=== PATIENT | female | born 1930 | race Caucasian/White ===

== ENCOUNTER 2016-11-09 13:01 | Outpatient (CLI) ==
[2014-02-04 15:04] VITALS: BMI 29.2
--- NOTE | 2016-11-09 14:10 | CT ---
EXAM: Noncontrasted CT examination of the abdomen and pelvis. Comparison: 06/15/2010. Reason for study: Abdominal pain. FINDINGS: Minimal basilar atelectasis/scarring. The heart is not enlarged. There is atherosclerot ic calcification of the aorta and distal arterial vasculature to include the coronary vessels. The liver, spleen, adrenal glands, and pancreas are unremarkable. There is mild bilateral renal cortical atrophy without nephrolithiasis, hydronephrosis, or perinephr ic inflammatory change. Within the right kidney, there are several large low density (Hounsfield un its equal 12), well-circumscribed cystic lesions without internal heterogenicity measuring up to 3 c m that are incompletely evaluated without intravenous contrast. There is a small fat containing periumbilical hernia. Extensive diverticular disease is seen throug hout the rectosigmoid colon without surrounding pericolonic inflammatory change. Degenerative disease is seen throughout the lumbosacral spine and pelvis with anterior and posterior osteophyte formation and vacuum disc phenomenon. Metallic densities are seen in the subcutaneous soft tissue of the abdomen likely after operative in tervention. Examination is somewhat limited by lack of intravenous and oral contrast. IMPRESSION: 1. No acute intra-abdominal or pelvic findings. 2. Diverticulosis without diverticulitis. 3. Postoperative, degenerative, and senescent change.
== END 2016-11-09 13:02 | disposition home or self-care (01) ==
LOC: RAD 13:01
PROVIDERS: ATTEND Family Medicine
DX: R10.9 Unspecified abdominal pain (principal)
CPT/HCPCS: 74176

== ENCOUNTER 2017-07-26 15:28 | Outpatient (CLI) ==
[2014-02-04 15:04] VITALS: BMI 29.2
== END 2017-07-26 15:29 | disposition short-term general hospital (02) ==
LOC: AMBL 15:28
DX: M54.9 Dorsalgia, unspecified (principal); R19.7 Diarrhea, unspecified

== ENCOUNTER 2017-10-31 05:31 | Inpatient (IN) | payer OTHER ==
[2017-10-31] MEDS ORDERED: SOLU-MEDROL 125 MG IVP STA (06:05)
[2017-10-31] MEDS ORDERED: DUONEB NEB STA (06:05)
--- NOTE | 2017-10-31 06:28 | ED.PDOC ---
General Stated Complaint: Patient is sent from the [place], for the coughing, congestion, short of breath. leg edema, sat was low. Time Seen by Physician: 06:26 Mode of Arrival: Wheelchair Information Source: Family Reviewed sepsis parameters & appropriate labs ordered?: Yes System Inflammatory Response Syndrome: Resp >20/Minute <BRENDA CHAKRABORTY - Last Filed: 10/31/17 06:26> Nursing and Triage Documentation Reviewed and Agree: No Reviewed sepsis parameters & appropriate labs ordered?: No System Inflammatory Response Syndrome: Not Applicable System Inflammatory Response Syndrome: Not Applicable <ZEV TEAGUE - Last Filed: 10/31/17 08:05> ED Provider: Dr. ZEV TEAGUE Chief Complaint: Chest Pain Primary Care Provider: BRENDA CHAKRABORTY-[facility] Sepsis Protocol: For patient's 13 years and over: Temp is 96.8 and below OR 101 and greater Pulse >90 BPM Resp >20/minute Acutely Altered Mental Status Are patient's symptoms suggestive of a new infection, such as: -Pneumonia -Skin, Soft Tissue -Endocarditis -UTI -Bone, Joint Infection -Implantable Device -Acute Abdominal Infection -Wound Infection -Meningitis -Blood Stream Catheter Infection -Unknown Respiratory Complaint Exam - Shortness of Air Complaint/Exam Symptoms Are: Still present Timing: Constant Initial Severity: Severe Character: Reports: Dyspnea at rest Aggravating: Reports: URI Alleviating: Reports: None Associated Signs and Symptoms: Reports: Cough, Wheezing, Nasal congestion, Edema Related History: Reports: Similar episode History of Healthcare-Acquired Pneumonia: No Cardiac Risk Factors: Reports: Prior [place], CAD, Elevated lipids Pseudomonas Risk Factors: Reports: None Home Oxygen Use: No Recent Stress Test: No Recent Echo/LV Function: No Respiratory Distress: Mild Stridor Present: No Tracheal Deviation: No Subcutaneous Emphysema: No Accessory Muscle Use: Yes Retractions: Nasal Flaring Diminished Breath Sounds: Yes Prolonged Expiratory Phase: Yes Unable to Speak Full Sentences: Yes Fatigue: No Leg Swelling: Yes Ivett's Sign Present: No Differential Diagnoses: CHF, COPD Exacerbation, Unstable Angina, Pneumonia Quality Indicators for AMI: EKG in 10min. <BRENDA CHAKRABORTY - Last Filed: 10/31/17 06:26> Review of Systems - Review Of Systems Constitutional: Reports: Malaise, Weakness Eyes: Reports: No symptoms Ears, Nose, Mouth, Throat: Reports: No symptoms Respiratory: Reports: Cough, Short of air, Wheezing Cardiac: Reports: No symptoms GI: Reports: No symptoms : Reports: No symptoms Musculoskeletal: Reports: No symptoms Skin: Reports: No symptoms Neurological: Reports: No symptoms Endocrine: Reports: No symptoms Hematologic/Lymphatic: Reports: No symptoms All Other Systems: Reviewed and Negative <BRENDA CHAKRABORTY Last Filed: 10/31/17 06:26> Past Medical History - Past Medical History Previously Healthy: Yes Endocrine: Reports: Hypothyroid, Dyslipidemia Cardiovascular: Reports: CAD, Hypertension, CHF, A-Fib Respiratory: Reports: COPD Hematological: Reports: None Gastrointestinal: Reports: GERD Genitourinary: Reports: None Neuro/Psych: Reports: Anxiety Musculoskeletal: Reports: Arthritis, Back Pain Cancer: Reports: None Last Menstrual Period: menopausal - Surgical History General Surgical History: Reports: Appendectomy, Cholecystectomy, Tonsillectomy , Orthopedic (rt ankle) - Family History Family History: Reports: None - Social History Smoking Status: Former smoker Hx Substance Use: No Alcohol Screening: None - Immunizations Tetanus Shot up to Date: No <BRENDA CHAKRABORTY Last Filed: 10/31/17 06:26> Physical Exam - Physical Exam Appearance: Ill-appearing Ill-appearing: Mild Pain Distress: Mild Eyes: ALESSIO, EOMI, Conjunctiva clear ENT: Ears normal, Nose normal, Oropharynx normal Respiratory: Rhonchi Cardiovascular: RRR, Pulses normal, No rub, No murmur GI/: Soft, Nontender, No masses, Bowel sounds normal, No Organomegaly Musculoskeletal: Normal strength, ROM intact, No edema, No calf tenderness Skin: Warm, Dry, Normal color Neurological: Sensation intact, Motor intact, Reflexes intact, Cranial nerves intact, Alert, Oriented Psychiatric: Affect appropriate, Mood appropriate <ZVE TEAGUE Last Filed: 10/31/17 08:05> Critical Care Note - Critical Care Note Total Time (mins): 0 <ZEV TEAGUE Filed: 10/31/17 08:05> Course - Course Hematology/Chemistry: 10/31/17 06:50 10/31/17 06:50 <ZEV TEAGUE Last Filed: 10/31/17 08:05> - Course Orders, Labs, Meds: Lab Review 10/31/17 10/31/17 10/31/17 06:02 06:50 06:50 WBC 9.73 RBC 3.11 L Hgb 8.5 L Hct 27.5 L MCV 88.4 MCH 27.3 MCHC 30.9 L RDW Coeff of Jamal 17.7 H Plt Count 447 H Immature Gran % (Auto) 0.6 Neut % (Auto) 61.3 Lymph % (Auto) 26.9 [place] % (Auto) 10.4 H Eos % (Auto) 0.6 Baso % (Auto) 0.2 Immature Gran # (Auto) 0.1 Neut # 6.0 Lymph # 2.6 [place] # 1.0 Eos # 0.1 Baso # 0.0 Puncture Site Lrad O2 Saturation 96.0 ABG pH 7.508 H* ABG pCO2 36.8 ABG pO2 75.0 L ABG HCO3 29.2 H ABG Total CO2 30 H ABG Base Excess 6 H Josh Test + FiO2 % 21.0 Sodium 140 Potassium 2.5 L* Chloride 100 Carbon Dioxide 29 Anion Gap 13.5 BUN 14 Creatinine 0.72 Estimated GFR (MDRD) 77.00 BUN/Creatinine Ratio 19.44 Glucose 101 Lactic Acid Calcium 8.8 Total Bilirubin 0.6 AST 15 ALT 9 L Alkaline Phosphatase 75 Total Creatine Kinase 49 Troponin I 0.0330 B-Natriuretic Peptide Total Protein 6.7 Albumin 2.3 L Globulin 4.4 Albumin/Globulin Ratio 0.52 Procalcitonin Influenza A (Rapid) Influenza B (Rapid) 10/31/17 10/31/17 10/31/17 06:50 06:50 06:50 WBC RBC Hgb Hct MCV MCH MCHC RDW Coeff of Jamal Plt Count Immature Gran % (Auto) Neut % (Auto) Lymph % (Auto) [place] % (Auto) Eos % (Auto) Baso % (Auto) Immature Gran # (Auto) Neut # Lymph # [place] # Eos # Baso # Puncture Site O2 Saturation ABG pH ABG pCO2 ABG pO2 ABG HCO3 ABG Total CO2 ABG Base Excess Josh Test FiO2 % Sodium Potassium Chloride Carbon Dioxide Anion Gap BUN Creatinine Estimated GFR (MDRD) BUN/Creatinine Ratio Glucose Lactic Acid 10.2 Calcium Total Bilirubin AST ALT Alkaline Phosphatase Total Creatine Kinase Troponin I B-Natriuretic Peptide 328 H Total Protein Albumin Globulin Albumin/Globulin Ratio Procalcitonin < 0.05 Influenza A (Rapid) Influenza B (Rapid) 10/31/17 06:50 WBC RBC Hgb Hct MCV MCH MCHC RDW Coeff of Jamal Plt Count Immature Gran % (Auto) Neut % (Auto) Lymph % (Auto) [place] % (Auto) Eos % (Auto) Baso % (Auto) Immature Gran # (Auto) Neut # Lymph # [place] # Eos # Baso # Puncture Site O2 Saturation ABG pH ABG pCO2 ABG pO2 ABG HCO3 ABG Total CO2 ABG Base Excess Josh Test FiO2 % Sodium Potassium Chloride Carbon Dioxide Anion Gap BUN Creatinine Estimated GFR (MDRD) BUN/Creatinine Ratio Glucose Lactic Acid Calcium Total Bilirubin AST ALT Alkaline Phosphatase Total Creatine Kinase Troponin I B-Natriuretic Peptide Total Protein Albumin Globulin Albumin/Globulin Ratio Procalcitonin Influenza A (Rapid) Positive by naat H Influenza B (Rapid) Negative by naat Orders Category Date Time Status ADMIT PATIENT INPATIENT .TO [facility] (MONITORED BED) ADMISSION 10/31/17 08: 00 Ordered ABG DRAW REQUEST Stat CARDIO 10/31/17 06:02 Completed EKG-(ED ONLY) Stat CARDIO 10/31/17 06:02 Completed EKG-(IP & OP ONLY) DAILY CARDIO 11/01/17 06:00 Ordered EKG-(IP & OP ONLY) DAILY CARDIO 11/02/17 06:00 Ordered EKG-(IP & OP ONLY) DAILY CARDIO 11/03/17 06:00 Ordered NEBULIZER TREATMENT Stat CARDIO 10/31/17 06:05 Completed ACTIVITY .Complete BR CARE 10/31/17 08:00 Ordered INTAKE & OUTPUT Q8HR CARE 10/31/17 08:02 Ordered TELEMETRY MONITORING TELE CARE 10/31/17 08:01 Ordered VITAL SIGNS Q4HR CARE 10/31/17 08:00 Ordered REGULAR DIET DIETARY 10/31/17 Lunch Ordered ED IV/MEDIPORT/POWERPORT .ONCE EMERGENCY 10/31/17 06:02 Active ABG Stat LAB 10/31/17 06:02 Completed BLOOD CULTURE Stat LAB 10/31/17 06:50 Received BNP [B-TYPE NATRIURETIC PEPTIDE] Stat LAB 10/31/17 06:50 Completed CBC W/ AUTO DIFF DAILY@0600 LAB 11/01/17 06:00 Ordered CBC W/ AUTO DIFF DAILY@0600 LAB 11/02/17 06:00 Ordered CBC W/ AUTO DIFF Stat LAB 10/31/17 06:50 Completed COMPREHENSIVE METABOLIC PANEL DAILY@0600 LAB 11/01/17 06:00 Ordered COMPREHENSIVE METABOLIC PANEL DAILY@0600 LAB 11/02/17 06:00 Ordered COMPREHENSIVE METABOLIC PANEL Stat LAB 10/31/17 06:50 Completed CREATINE KINASE Q8H LAB 10/31/17 14:15 Ordered CREATINE KINASE Q8H LAB 10/31/17 22:15 Ordered CREATINE KINASE Stat LAB 10/31/17 06:50 Completed LACTIC ACID Stat LAB 10/31/17 06:50 Completed MOLECULAR FLU A/B Stat LAB 10/31/17 06:50 Completed PROCALCITONIN Stat LAB 10/31/17 06:50 Completed TROPONIN I Q8H LAB 10/31/17 14:15 Ordered TROPONIN I Q8H LAB 10/31/17 22:15 Ordered TROPONIN I Stat LAB 10/31/17 06:50 Completed 0.9 % Sodium Chloride [Saline Flush] MEDS 10/31/17 06:02 Active 1 syr IVF PRN PRN Ceftriaxone Sodium [Rocephin] 1 gm MEDS 10/31/17 09:00 Ordered 0.9 % Sodium Chloride [Sodium Chloride] 50 ml IV DAILY Ipratropium/Albuterol Neb [Duoneb] MEDS 10/31/17 06:05 Discontinued 1 vial NEB ONCE STA Methylprednisolone Sod Succ/Pf [Solu-Medrol 125 mg] MEDS 10/31/17 06:05 Discontinued 80 mg IVP ONCE STA Methylprednisolone Sod Succ/Pf [Solu-Medrol 40 mg] MEDS 10/31/17 09:00 Ordered 40 mg IVP Q12HR Potassium Chloride [Potassium Chloride Premix Run] 10 MEDS 10/31/17 07:59 Active meq Premix 100 ml Water 1 bag IV ONCE Potassium Chloride in 0.9%NaCl [Sodium Chloride 0.9%- MEDS 10/31/17 08:00 Ordered KCl 20 Meq] 1,000 ml IV 75 mls/hr Sodium Chloride 0.9% [Sodium Chloride] 1,000 ml MEDS 10/31/17 08:00 Ordered IV 75 mls/hr CT CHEST W/O CONTRAST Stat RADS 10/31/17 06:03 Completed Medications Generic Name Dose Route Start Last Admin Trade Name Freq PRN Reason Stop Dose Admin Potassium Chloride 10 meq/ 100 mls @ 100 mls/hr 10/31/17 07:59 Sterile Water IV 10/31/17 08:58 ONCE STA Sodium Chloride 1,000 mls @ 75 mls/hr 10/31/17 08:00 Sodium Chloride IV .[id number] ELIZABETH Potassium Chloride/Sodium Chloride 1,000 mls @ 75 mls/hr 10/31/17 08:00 Sodium Chloride 0.9%-Kcl 20 Meq IV .[id number] ELIZABETH Ceftriaxone Sodium 1 gm/ 50 mls @ 75 mls/hr 10/31/17 09:00 Sodium Chloride IV DAILY ELIZABETH Methylprednisolone Sodium Succinate 40 mg 10/31/17 09:00 Solu-Medrol 40 Mg IVP Q12HR ELIZABETH Sodium Chloride 1 syr 10/31/17 06:02 Saline Flush IVF PRN PRN To flush IV Discontinued Medications Generic Name Dose Route Start Last Admin Trade Name Freq PRN Reason Stop Dose Admin Albuterol/Ipratropium 1 vial 10/31/17 06:05 10/31/17 06:26 Duoneb NEB 10/31/17 06:06 1 vial ONCE STA Administration Methylprednisolone Sodium Succinate 80 mg 10/31/17 06:05 10/31/17 06:44 Solu-Medrol 125 Mg IVP 10/31/17 06:06 80 mg ONCE STA Administration Vital Signs: Temp Pulse Resp BP Pulse Ox 10/31/17 06:06 97 F L 80 28 H 170/96 H 96 Departure <BRENDA CHAKRABORTY - Last Filed: 10/31/17 06:26> - Departure Time of Disposition: 08:04 Pt referred to PMD for follow-up: Yes Disposition Discussed With: Patient <HOZEV - Last Filed: 10/31/17 08:05> - Departure Disposition: ADMITTED INPATIENT Discharge Problem: Hypokalemia, Influenza Instructions: Hypokalemia (ED) Condition: Good Additional Instructions: Please call your Family Physician as soon as possible to schedule a follow-up appointment. Allergies/Adverse Reactions: Allergies meloxicam [From Mobic] Adverse Reaction (Verified 02/04/14 15:00) morphine Adverse Reaction (Verified 02/04/14 15:00) Home Medications: Ambulatory Orders Albuterol Sulfate [Ventolin Hfa] 2 puff INH DIRECTED 02/04/14 Amlodipine Besylate/Benazepril [Lotrel 5-20 mg Capsule] 1 cap PO DAILY 02/04/14 Aspirin [Ecotrin] 81 mg PO DAILY 02/04/14 Bumetanide [Bumex] 1 mg PO 2 TIMES PER WEEK 02/04/14 Bupropion HCl [Wellbutrin Sr] 150 mg PO DAILY 02/04/14 Dicyclomine HCl [Bentyl] 10 mg PO Q6HR PRN 02/04/14 Diphenhydramine HCl [Benadryl] 50 mg PO BID 02/04/14 Levothyroxine Sodium [Tirosint] 0.075 mg PO DAILY 02/04/14 Lorazepam [Ativan] 1 mg PO QID 02/04/14 Losartan/Hydrochlorothiazide [Hyzaar 100-12.5 Tablet] 1 tab PO DAILY 02/04/14 Meclizine HCl [Antivert] 12.5 mg PO DIRECTED PRN 02/04/14 Mometasone/Formoterol [Dulera 100 Mcg/5 Mcg Inhaler] 1 spray INH BID 02/04/14 Omeprazole Magnesium [Prilosec Otc] 20 mg PO DAILY 02/04/14 Propranolol HCl [Inderal] 10 mg PO BID 02/04/14 Sertraline HCl [Zoloft] 200 mg PO DAILY 02/04/14 Sodium Chloride [Saline Nose Campbell] 1 spray INH DIRECTED PRN 02/04/14 Tiotropium Benson [Spiriva] 2 spray INH DIRECTED 02/04/14
--- NOTE | 2017-10-31 07:35 | CT ---
EXAM: CT chest without contrast. HISTORY: Cough. COMPARISON: Radiograph 02/04/2014. CT 01/23/2013. TECHNIQUE: Multiple axial images of the chest were obtained without intravenous contrast. Images we re reformatted in the sagittal and coronal planes. FINDINGS: Evaluation for lymphadenopathy is limited by lack of intravenous contrast. Heart size is normal. No pericardial effusion identified. Atherosclerotic calcification are present. Bronchial thickening and numerous nodular densities are seen throughout both lungs. The largest disc rete nodule is in the right middle lobe measuring 1.7 x 1 cm on axial image 34. No pleural effusion or pneumothorax identified. Limited images of the upper abdomen demonstrate a right renal cyst. Sutures seen along the ventral a bdominal wall. Degenerative changes present throughout the spine and shoulders. IMPRESSION: Bilateral bronchial thickening and nodular densities, most likely due to infectious process. Follow- up CT in 4-6 weeks recommended for reassessment.
[2017-10-31] MEDS ORDERED: POTASSIUM CHLORIDE PREMIX RUN 10 MEQ in PREMIX 100 ML WATER 1 BAG IV STA (07:59)
[2017-10-31] MEDS ORDERED: ROCEPHIN 1 GM in SODIUM CHLORIDE 50 ML IV STA (08:12)
[2017-10-31] MEDS ORDERED: POTASSIUM CHLORIDE PREMIX RUN 100 ML IV ONE (08:22)
[2017-10-31] MEDS ORDERED: ROCEPHIN ONE (08:22)
[2017-10-31] MEDS: SODIUM CHLORIDE 0.9%-KCL 20 MEQ 1,000 ML IV SCH (08:40)
[2017-10-31] MEDS ORDERED: VANCOMYCIN 1,000 MG in SODIUM CHLORIDE 200 ML IV SCH (09:00)
[2017-10-31] MEDS ORDERED: POTASSIUM CHLORIDE 20 MEQ VIAL-ADDITIVE ONLY IV ONE (09:20)
[2017-10-31] MEDS ORDERED: ULTRAM PO PRN (11:36)
[2017-10-31 11:48] VITALS: BMI 26.6
[2017-10-31] MEDS ORDERED: ATIVAN PO SCH (13:00)
[2017-10-31] MEDS: SODIUM CHLORIDE 1,000 ML IV SCH (13:43)
[2017-10-31] MEDS: SOLU-MEDROL 40 MG IVP SCH ×2 (13:44→20:39)
[2017-10-31] MEDS: ATIVAN PO SCH ×3 (13:59→20:40)
[2017-10-31] MEDS: FERROUS SULFATE PO SCH ×2 (14:00→20:40)
[2017-10-31] MEDS: TAMIFLU PO SCH ×2 (14:00→20:40)
[2017-10-31] MEDS: VANCOMYCIN 500 MG in SODIUM CHLORIDE 100 ML IV SCH ×2 (14:00→20:39)
[2017-10-31] MEDS ORDERED: NON-FORMULARY MEDICATION (Ferrous Sulfate [Ferrous Sulfate] 325 MG) PO SCH (15:00)
[2017-10-31] MEDS: LIBRAX 5/2.5 MG PO SCH ×2 (18:08→20:39)
[2017-10-31] MEDS: SYMBICORT 160-4.5 MCG INHALER IH SCH (20:39)
[2017-10-31] MEDS: TAMBOCOR PO SCH (20:39)
[2017-10-31] MEDS: ELIQUIS PO SCH (20:40)
[2017-10-31] MEDS: LOPRESSOR PO SCH (20:40)
[2017-10-31] MEDS: MUCINEX PO SCH (20:40)
[2017-10-31] MEDS: COGENTIN PO SCH (20:41)
[2017-10-31] MEDS ORDERED: GUAIFENESIN 400 MG PO SCH (21:00)
[2017-10-31] MEDS ORDERED: BENZTROPINE MESYLATE 0.5 MG PO SCH (21:00)
[2017-10-31] MEDS ORDERED: FLECAINIDE ACETATE 100 MG PO SCH (21:00)
[2017-10-31] MEDS ORDERED: MOMETASONE INH SCH (21:00)
[2017-10-31] MEDS ORDERED: FORMOTEROL INH SCH (21:00)
[2017-10-31] MEDS ORDERED: NON-FORMULARY MEDICATION (Apixaban [Eliquis] 2.5 MG) PO SCH (21:00)
[2017-10-31] MEDS ORDERED: XOPENEX 1.25 MG NEB ONE (23:23)
[2017-10-31] MEDS: XOPENEX 1.25 MG NEB SCH (23:23)
[2017-11-01] MEDS: SODIUM CHLORIDE 0.9%-KCL 20 MEQ 1,000 ML IV SCH ×2 (02:48→17:41)
[2017-11-01] MEDS: XOPENEX 1.25 MG NEB SCH ×4 (04:56→23:40)
[2017-11-01] MEDS: LIBRAX 5/2.5 MG PO SCH ×4 (05:55→21:29)
[2017-11-01] MEDS: BUMEX PO SCH (05:56)
[2017-11-01] MEDS: PRILOSEC PO SCH (05:56)
[2017-11-01] MEDS: SYNTHROID PO SCH (05:56)
[2017-11-01] MEDS ORDERED: BENAZEPRIL PO SCH (09:00)
[2017-11-01] MEDS ORDERED: AMLODIPINE BESYLATE PO SCH (09:00)
[2017-11-01] MEDS ORDERED: LEVOTHYROXINE SODIUM PO SCH (09:00)
[2017-11-01] MEDS ORDERED: ASCORBIC ACID 1000 MG PO SCH (09:00)
[2017-11-01] MEDS ORDERED: SERTRALINE HCL 200 MG PO SCH (09:00)
[2017-11-01] MEDS: SOLU-MEDROL 40 MG IVP SCH ×2 (09:18→21:29)
[2017-11-01] MEDS: SODIUM CHLORIDE 1,000 ML IV SCH (09:20)
[2017-11-01] MEDS: ROCEPHIN 1 GM in SODIUM CHLORIDE 50 ML IV SCH (09:23)
[2017-11-01] MEDS: VITAMIN C PO SCH (09:27)
[2017-11-01] MEDS: COLACE PO SCH (09:27)
[2017-11-01] MEDS: ELIQUIS PO SCH ×2 (09:27→21:28)
[2017-11-01] MEDS: ZYRTEC PO SCH (09:28)
[2017-11-01] MEDS: LOTENSIN PO SCH (09:28)
[2017-11-01] MEDS: LOPRESSOR PO SCH ×2 (09:28→21:28)
[2017-11-01] MEDS: TAMIFLU PO SCH ×2 (09:28→21:29)
[2017-11-01] MEDS: NORVASC PO SCH (09:28)
[2017-11-01] MEDS: ZOLOFT PO SCH (09:28)
[2017-11-01] MEDS: TAMBOCOR PO SCH ×2 (09:29→21:29)
[2017-11-01] MEDS: COZAAR PO SCH (09:29)
[2017-11-01] MEDS: FERROUS SULFATE PO SCH ×3 (09:29→21:29)
[2017-11-01] MEDS: MUCINEX PO SCH ×2 (09:29→21:28)
[2017-11-01] MEDS: MIRALAX PO SCH (09:30)
[2017-11-01] MEDS: ATIVAN PO SCH ×4 (09:32→21:34)
[2017-11-01] MEDS: SYMBICORT 160-4.5 MCG INHALER IH SCH ×2 (09:32→21:30)
[2017-11-01] MEDS: VANCOMYCIN 500 MG in SODIUM CHLORIDE 100 ML IV SCH ×2 (10:10→21:29)
[2017-11-01] MEDS ORDERED: K-DUR PO STA (14:14)
[2017-11-01] MEDS: COGENTIN PO SCH (21:27)
[2017-11-02] MEDS: XOPENEX 1.25 MG NEB SCH ×3 (04:00→23:46)
[2017-11-02] MEDS: SYNTHROID PO SCH (05:40)
[2017-11-02] MEDS: BUMEX PO SCH (05:40)
[2017-11-02] MEDS: PRILOSEC PO SCH (05:40)
[2017-11-02] MEDS: LIBRAX 5/2.5 MG PO SCH ×4 (05:41→21:00)
[2017-11-02] MEDS: LASIX TAB PO SCH (05:41)
[2017-11-02] MEDS: SODIUM CHLORIDE 0.9%-KCL 20 MEQ 1,000 ML IV SCH ×2 (06:21→13:35)
[2017-11-02] MEDS: MIRALAX PO SCH (08:32)
[2017-11-02] MEDS: COLACE PO SCH (08:32)
[2017-11-02] MEDS: LOTENSIN PO SCH (08:32)
[2017-11-02] MEDS: COZAAR PO SCH (08:32)
[2017-11-02] MEDS: ROCEPHIN 1 GM in SODIUM CHLORIDE 50 ML IV SCH (08:32)
[2017-11-02] MEDS: ATIVAN PO SCH ×4 (08:32→21:00)
[2017-11-02] MEDS: SYMBICORT 160-4.5 MCG INHALER IH SCH ×2 (08:32→20:59)
[2017-11-02] MEDS: TAMBOCOR PO SCH ×2 (08:33→20:59)
[2017-11-02] MEDS: ZOLOFT PO SCH (08:33)
[2017-11-02] MEDS: LOPRESSOR PO SCH ×2 (08:33→21:00)
[2017-11-02] MEDS: ZYRTEC PO SCH (08:34)
[2017-11-02] MEDS: TAMIFLU PO SCH ×2 (08:34→21:01)
[2017-11-02] MEDS: ELIQUIS PO SCH ×2 (08:34→21:00)
[2017-11-02] MEDS: NORVASC PO SCH (08:34)
[2017-11-02] MEDS: FERROUS SULFATE PO SCH ×3 (08:35→21:00)
[2017-11-02] MEDS: VITAMIN C PO SCH (08:35)
[2017-11-02] MEDS: MUCINEX PO SCH ×2 (08:35→21:00)
[2017-11-02] MEDS: SOLU-MEDROL 40 MG IVP SCH ×2 (08:40→21:00)
[2017-11-02] MEDS: VANCOMYCIN 500 MG in SODIUM CHLORIDE 100 ML IV SCH ×2 (09:57→20:59)
[2017-11-02] MEDS: CALMOSEPTINE OINTMENT TP SCH ×4 (09:58→21:02)
--- NOTE | 2017-11-02 11:31 | US ---
Exam: Brantley-scale and color Doppler ultrasonographic evaluation of the lower extremity venous structu res. Reason for exam: Edema and weakness. Comparison: None available. FINDINGS: There is spontaneous flow with adequate compression and augmentation seen in both the left and right common femoral, greater saphenous, profunda, superficial femoral, popliteal, peroneal, posterior tibi al, and anterior tibial veins. Impression: No ultrasonographic evidence of deep venous thrombus is seen within the imaged portions of the right or left lower extremities.
[2017-11-02] MEDS: COGENTIN PO SCH (21:00)
[2017-11-03] MEDS: SODIUM CHLORIDE 0.9%-KCL 20 MEQ 1,000 ML IV SCH ×3 (01:02→15:35)
[2017-11-03] MEDS: XOPENEX 1.25 MG NEB SCH ×3 (05:13→20:37)
[2017-11-03] MEDS: LIBRAX 5/2.5 MG PO SCH ×4 (05:37→22:25)
[2017-11-03] MEDS: SYNTHROID PO SCH (05:37)
[2017-11-03] MEDS: BUMEX PO SCH (05:37)
[2017-11-03] MEDS: PRILOSEC PO SCH (05:37)
[2017-11-03] MEDS: SYMBICORT 160-4.5 MCG INHALER IH SCH ×2 (10:17→22:22)
[2017-11-03] MEDS: ROCEPHIN 1 GM in SODIUM CHLORIDE 50 ML IV SCH (10:17)
[2017-11-03] MEDS: MIRALAX PO SCH (10:18)
[2017-11-03] MEDS: SOLU-MEDROL 40 MG IVP SCH ×2 (10:18→20:40)
[2017-11-03] MEDS: ZOLOFT PO SCH (10:20)
[2017-11-03] MEDS: COLACE PO SCH (10:20)
[2017-11-03] MEDS: VITAMIN C PO SCH (10:21)
[2017-11-03] MEDS: ELIQUIS PO SCH ×2 (10:21→22:27)
[2017-11-03] MEDS: NORVASC PO SCH (10:21)
[2017-11-03] MEDS: ZYRTEC PO SCH (10:21)
[2017-11-03] MEDS: TAMBOCOR PO SCH ×2 (10:21→22:25)
[2017-11-03] MEDS: MUCINEX PO SCH ×2 (10:23→22:28)
[2017-11-03] MEDS: FERROUS SULFATE PO SCH ×3 (10:23→22:28)
[2017-11-03] MEDS: LOPRESSOR PO SCH ×2 (10:23→22:28)
[2017-11-03] MEDS: LOTENSIN PO SCH (10:23)
[2017-11-03] MEDS: COZAAR PO SCH (10:23)
[2017-11-03] MEDS: TAMIFLU PO SCH ×2 (10:23→22:26)
[2017-11-03] MEDS: ATIVAN PO SCH ×4 (10:23→22:26)
[2017-11-03] MEDS: CALMOSEPTINE OINTMENT TP SCH ×4 (10:24→22:30)
[2017-11-03] MEDS: VANCOMYCIN 500 MG in SODIUM CHLORIDE 100 ML IV SCH ×2 (11:44→22:22)
[2017-11-03] MEDS ORDERED: LASIX IVP STA (19:13)
[2017-11-03] MEDS: COGENTIN PO SCH (22:26)
[2017-11-04] MEDS: XOPENEX 1.25 MG NEB SCH ×3 (04:54→20:39)
[2017-11-04] MEDS: SYNTHROID PO SCH (06:03)
[2017-11-04] MEDS: PRILOSEC PO SCH (06:04)
[2017-11-04] MEDS: LIBRAX 5/2.5 MG PO SCH ×4 (06:04→21:28)
[2017-11-04] MEDS: LASIX TAB PO SCH (06:04)
[2017-11-04] MEDS: BUMEX PO SCH (06:04)
[2017-11-04] MEDS: SYMBICORT 160-4.5 MCG INHALER IH SCH ×2 (09:17→21:35)
[2017-11-04] MEDS: ROCEPHIN 1 GM in SODIUM CHLORIDE 50 ML IV SCH (09:17)
[2017-11-04] MEDS: TAMBOCOR PO SCH ×2 (09:17→21:31)
[2017-11-04] MEDS: ATIVAN PO SCH ×4 (09:17→21:35)
[2017-11-04] MEDS: ZYRTEC PO SCH (09:17)
[2017-11-04] MEDS: COLACE PO SCH (09:18)
[2017-11-04] MEDS: FERROUS SULFATE PO SCH ×3 (09:18→21:29)
[2017-11-04] MEDS: MIRALAX PO SCH (09:18)
[2017-11-04] MEDS: TAMIFLU PO SCH ×2 (09:18→21:31)
[2017-11-04] MEDS: ZOLOFT PO SCH (09:18)
[2017-11-04] MEDS: MUCINEX PO SCH ×2 (09:19→21:31)
[2017-11-04] MEDS: COZAAR PO SCH (09:19)
[2017-11-04] MEDS: ELIQUIS PO SCH ×2 (09:19→21:30)
[2017-11-04] MEDS: LOTENSIN PO SCH (09:19)
[2017-11-04] MEDS: NORVASC PO SCH (09:19)
[2017-11-04] MEDS: VITAMIN C PO SCH (09:19)
[2017-11-04] MEDS: PROTONIX PO SCH ×2 (09:20→17:23)
[2017-11-04] MEDS: LOPRESSOR PO SCH ×2 (09:20→21:28)
[2017-11-04] MEDS: SOLU-MEDROL 40 MG IVP SCH ×2 (09:21→20:21)
[2017-11-04] MEDS: CALMOSEPTINE OINTMENT TP SCH ×4 (09:36→21:27)
[2017-11-04] MEDS: VANCOMYCIN 500 MG in SODIUM CHLORIDE 100 ML IV SCH ×2 (10:27→21:27)
[2017-11-04] MEDS: COGENTIN PO SCH (21:33)
[2017-11-05] MEDS: XOPENEX 1.25 MG NEB SCH ×3 (05:37→23:40)
[2017-11-05] MEDS: LIBRAX 5/2.5 MG PO SCH ×4 (06:10→20:19)
[2017-11-05] MEDS: SYNTHROID PO SCH (06:10)
[2017-11-05] MEDS: PRILOSEC PO SCH (06:10)
[2017-11-05] MEDS: BUMEX PO SCH (06:10)
[2017-11-05] MEDS: PROTONIX PO SCH ×2 (06:10→17:34)
[2017-11-05] MEDS: CALMOSEPTINE OINTMENT TP SCH ×4 (08:45→20:20)
[2017-11-05] MEDS: MIRALAX PO SCH (08:46)
[2017-11-05] MEDS: ZOLOFT PO SCH (08:47)
[2017-11-05] MEDS: FERROUS SULFATE PO SCH ×3 (08:47→20:20)
[2017-11-05] MEDS: ELIQUIS PO SCH ×2 (08:48→20:19)
[2017-11-05] MEDS: NORVASC PO SCH (08:50)
[2017-11-05] MEDS: VITAMIN C PO SCH (08:50)
[2017-11-05] MEDS: MUCINEX PO SCH ×2 (08:50→20:19)
[2017-11-05] MEDS: TAMBOCOR PO SCH ×2 (08:51→20:19)
[2017-11-05] MEDS: LOPRESSOR PO SCH ×2 (08:51→20:19)
[2017-11-05] MEDS: LOTENSIN PO SCH (08:51)
[2017-11-05] MEDS: ZYRTEC PO SCH (08:52)
[2017-11-05] MEDS: COLACE PO SCH (08:52)
[2017-11-05] MEDS: COZAAR PO SCH (08:52)
[2017-11-05] MEDS: SOLU-MEDROL 40 MG IVP SCH ×2 (08:53→20:19)
[2017-11-05] MEDS: SYMBICORT 160-4.5 MCG INHALER IH SCH ×2 (10:15→20:18)
[2017-11-05] MEDS: VANCOMYCIN 500 MG in SODIUM CHLORIDE 100 ML IV SCH ×2 (10:32→20:19)
[2017-11-05] MEDS: ROCEPHIN 1 GM in SODIUM CHLORIDE 50 ML IV SCH (11:32)
[2017-11-05] MEDS: ATIVAN PO SCH ×4 (13:16→20:19)
[2017-11-05] MEDS: COGENTIN PO SCH (20:20)
[2017-11-06] MEDS: XOPENEX 1.25 MG NEB SCH ×3 (03:58→21:46)
[2017-11-06] MEDS: PROTONIX PO SCH ×2 (05:34→17:20)
[2017-11-06] MEDS: LIBRAX 5/2.5 MG PO SCH ×4 (05:34→21:43)
[2017-11-06] MEDS: LASIX TAB PO SCH (05:34)
[2017-11-06] MEDS: SYNTHROID PO SCH (05:34)
[2017-11-06] MEDS: BUMEX PO SCH (05:34)
[2017-11-06] MEDS ORDERED: K-DUR PO SCH (08:00)
[2017-11-06] MEDS: COLACE PO SCH (08:52)
[2017-11-06] MEDS: MIRALAX PO SCH (08:52)
[2017-11-06] MEDS: COZAAR PO SCH (08:53)
[2017-11-06] MEDS: ZYRTEC PO SCH (08:53)
[2017-11-06] MEDS: TAMBOCOR PO SCH ×2 (08:54→21:44)
[2017-11-06] MEDS: FERROUS SULFATE PO SCH ×3 (08:54→21:43)
[2017-11-06] MEDS: SYMBICORT 160-4.5 MCG INHALER IH SCH ×2 (08:54→21:42)
[2017-11-06] MEDS: MUCINEX PO SCH ×2 (08:55→21:45)
[2017-11-06] MEDS: LOPRESSOR PO SCH ×2 (08:55→21:44)
[2017-11-06] MEDS: LOTENSIN PO SCH (08:55)
[2017-11-06] MEDS: VITAMIN C PO SCH (08:55)
[2017-11-06] MEDS: NORVASC PO SCH (08:56)
[2017-11-06] MEDS: ZOLOFT PO SCH (08:56)
[2017-11-06] MEDS: SOLU-MEDROL 40 MG IVP SCH ×2 (08:57→21:43)
[2017-11-06] MEDS: CALMOSEPTINE OINTMENT TP SCH ×4 (09:00→21:43)
[2017-11-06] MEDS: ATIVAN PO SCH ×4 (09:08→21:44)
[2017-11-06] MEDS: ELIQUIS PO SCH ×2 (09:08→21:44)
[2017-11-06] MEDS: ROCEPHIN 1 GM in SODIUM CHLORIDE 50 ML IV SCH (09:10)
[2017-11-06] MEDS ORDERED: POTASSIUM CHLORIDE PREMIX RUN 10 MEQ in PREMIX 100 ML WATER 1 BAG IV STA ×2 (09:44→09:46)
[2017-11-06] MEDS: VANCOMYCIN 500 MG in SODIUM CHLORIDE 100 ML IV SCH ×2 (11:46→21:44)
--- NOTE | 2017-11-06 14:31 | DI ---
EXAM: Single view of the chest. History: Chest congestion. Comparison: Chest radiograph 02/04/2014, chest CT 10/31/2017 Findings: Heart is mildly enlarged. Bronchial wall thickening and subtle patchy bilateral lung infi ltrates have probably slightly improved compared to the prior study. No pneumothorax. No appreciabl e pleural fluid. Atherosclerotic vascular calcifications. No acute osseous abnormalities. Impression: Bronchial wall thickening and subtle patchy bilateral lung infiltrates have probably sli ghtly improved compared to the prior study.
[2017-11-06] MEDS: K-DUR PO SCH (17:22)
[2017-11-06] MEDS: KEFLEX PO SCH (21:43)
[2017-11-06] MEDS: COGENTIN PO SCH (21:44)
[2017-11-07] MEDS: XOPENEX 1.25 MG NEB SCH ×2 (03:56→14:05)
[2017-11-07] MEDS: SYNTHROID PO SCH (05:33)
[2017-11-07] MEDS: PROTONIX PO SCH (05:33)
[2017-11-07] MEDS: LIBRAX 5/2.5 MG PO SCH ×2 (05:33→11:56)
[2017-11-07] MEDS: BUMEX PO SCH (05:33)
[2017-11-07] MEDS ORDERED: LOTENSIN PO SCH (09:11)
[2017-11-07] MEDS: VANCOMYCIN 500 MG in SODIUM CHLORIDE 100 ML IV SCH (10:15)
[2017-11-07] MEDS: KEFLEX PO SCH (10:16)
[2017-11-07] MEDS: ZOLOFT PO SCH (10:16)
[2017-11-07] MEDS: K-DUR PO SCH (10:16)
[2017-11-07] MEDS: LOPRESSOR PO SCH (10:16)
[2017-11-07] MEDS: COLACE PO SCH (10:17)
[2017-11-07] MEDS: FERROUS SULFATE PO SCH (10:17)
[2017-11-07] MEDS: MUCINEX PO SCH (10:17)
[2017-11-07] MEDS: ZYRTEC PO SCH (10:17)
[2017-11-07] MEDS: ATIVAN PO SCH (10:17)
[2017-11-07] MEDS: TAMBOCOR PO SCH (10:17)
[2017-11-07] MEDS: VITAMIN C PO SCH (10:18)
[2017-11-07] MEDS: COZAAR PO SCH (10:18)
[2017-11-07] MEDS: ELIQUIS PO SCH (10:20)
[2017-11-07] MEDS: SYMBICORT 160-4.5 MCG INHALER IH SCH (10:22)
[2017-11-07] MEDS: LOTENSIN PO SCH (10:22)
[2017-11-07] MEDS: MIRALAX PO SCH (10:22)
[2017-11-07] MEDS: NORVASC PO SCH (10:23)
[2017-11-07] MEDS: CALMOSEPTINE OINTMENT TP SCH (10:29)
--- NOTE | 2017-11-07 11:04 | CM.DICTOOL ---
ADMISSION: 10/31/17 08:53 DISCHARGE: 11/07/17 DATE OF SERVICE: 11/07/17 FINAL DIAGNOSIS HYPOKALEMIA, RESOLVED INFLUENZA A POSITIVE GAIT DIFFICULTY CAD AND HISTORY OF [place] DYSLIPIDEMIA CHF, DIASTOLIC ATRIAL FIBRILLATION, PAROXYSMAL HYPERTENSION HYPOTHYROIDISM COPD KIDNEY DISEASE ANEMIA (POSITIVE OCCULT STOOL), STABLE H&H GERD CONSTIPATION DIVERTICULITIS BY HISTORY ANXIETY/DEPRESSION POLYMYALGIA RHEUMATICA OSTEOARTHRITIS, BOTH HIPS, SPINE HEARING IMPAIREDNESS APPENDECTOMY CHOLECYSTECTOMY TONSILLECTOMY RIGHT WRIST FRACTURE FORMER SMOKER LAST VITALS Temp Pulse Resp BP Pulse Ox 98.2 F 69 18 170/80 H 98 11/07/17 05:08 11/07/17 05:08 11/07/17 05:08 11/07/17 05:08 11/07/17 05:08 ACTIVE [facility] MEDICATIONS Amlodipine Besylate (Norvasc) 5 mg PO BEDTIME [facility] (CHANGED FROM DAILY) Apixaban (Eliquis) 2.5 mg PO BID [facility] Last Admin: 11/06/17 21:44 Dose: 2.5 mg Ascorbic Acid (Vitamin C) 1,000 mg PO DAILY [facility] Last Admin: 11/06/17 08:55 Dose: 1,000 mg Benazepril HCl (Lotensin) 20 mg PO BID [facility] (INCREASED FROM DAILY) Benztropine Mesylate (Cogentin) 0.5 mg PO BEDTIME [facility] Last Admin: 11/06/17 21:44 Dose: 0.5 mg Bumetanide (Bumex) 1 mg PO QDAC [facility] Last Admin: 11/07/17 05:33 Dose: 1 mg Cetirizine HCl (Zyrtec) 10 mg PO DAILY [facility] Last Admin: 11/06/17 08:53 Dose: 10 mg Chlordiazepoxide/Clidinium (Librax 2.5/5 Mg) 1 cap PO ACHS [facility] Last Admin: 11/07/17 05:33 Dose: 1 cap Docusate Sodium (Colace) 100 mg PO DAILY [facility] Last Admin: 11/06/17 08:52 Dose: 100 mg Ferrous Sulfate (Ferrous Sulfate) 324 mg PO TID [facility] Last Admin: 11/06/17 21:43 Dose: 324 mg Flecainide Acetate (Tambocor) 100 mg PO Q12HR [facility] Last Admin: 11/06/17 21:44 Dose: 100 mg Furosemide (Lasix Tab) 10 mg PO Q48H [facility] Last Admin: 11/06/17 05:34 Dose: 10 mg Guaifenesin (Mucinex) 600 mg PO Q12HR PRN COUGHING (CHANGED TO PRN) Last Admin: 11/06/17 21:45 Dose: 600 mg Levothyroxine Sodium (Synthroid) 75 mcg PO QDAC [facility] Last Admin: 11/07/17 05:33 Dose: 75 mcg Lorazepam (Ativan) 0.5 mg PO QID [facility] Last Admin: 11/06/17 21:44 Dose: 0.5 mg Losartan Potassium (Cozaar) 100 mg PO DAILY [facility] Last Admin: 11/06/17 08:53 Dose: 100 mg Metoprolol Tartrate (Lopressor) 50 mg PO Q12HR [facility] Last Admin: 11/06/17 21:44 Dose: 50 mg Polyethylene Glycol (Miralax) 17 gm PO DAILY [facility] Last Admin: 11/06/17 08:52 Dose: 17 gm Sertraline HCl (Zoloft) 200 mg PO DAILY [facility] Last Admin: 11/06/17 08:56 Dose: 200 mg ALLERGIES meloxicam [From Mobic] Adverse Reaction (Verified 02/04/14 15:00) morphine Adverse Reaction (Verified 02/04/14 15:00) tramadol Adverse Reaction (Verified 10/31/17 14:29) NEW PRESCRIPTIONS: RESUME [facility] MEDICATIONS PER LIST PROVIDED BY THE NURSING STAFF NOTE THE CHANGE IN THE AMLODIPINE BESYLATE (NORVASC) ADMINISTRATION TIMES TO GIVE AT HS NOTE THE CHANGE IN THE GUAIFENESIN (MUCINEX) TO TO Q 12 HOURS PRN NOTE THE CHANGE IN OMEPRAZOLE (PRILOSEC) TO BID DO NOT TAKE THE PREDNISONE 5 MG PO DAILY UNTIL THE DOES BELOW IS COMPLETED IN 5 DAYS NEW MEDICATIONS BENAZEPRIL HCL (LOTENSIN) 20 MG PO BID CARAFATE 1 GRAM QID KEFLEX 500 MG PO BID X 5 DAYS PREDNISONE 10 MG PO BID X 5 DAYS, THEN RESUME YOUR 5 MG PO DAILY. GIVE WITH FOOD DUONEBS TID X 30 DAYS K-DUR 40 MEQ PO DAILY SMOKING: FORMER SMOKER NONE NOW DISEASE SPECIFIC EDUCATION: PROVIDED TO THE DAUGHTER, ALLEN WELCH MEDICATION CHANGES [facility]PC MEDICTIONS REVIEWED CURRENT CLINICAL STATUS DISCHARGE PLANS FOLLOW UP IN THE [facility] LAB REVIEW: 11/07/17 04:30 11/07/17 04:30 11/07/17 04:30: Sodium 137, Potassium 4.3, Chloride 101, Carbon Dioxide 29, Anion Gap 11.3, BUN 15, Creatinine 0.78, Estimated GFR (MDRD) 70.00, BUN/ Creatinine Ratio 19.23, Glucose 176 H, Calcium 8.3, Total Bilirubin 0.4, AST 35 , ALT 43, Alkaline Phosphatase 61, Total Protein 6.0, Albumin 2.5 L, Globulin 3.5, Albumin/Globulin Ratio 0.71 11/07/17 04:30: WBC 14.98 H, RBC 3.25 L, Hgb 8.7 L, Hct 28.5 L, MCV 87.7, MCH 26.8 L, MCHC 30.5 L, RDW Coeff of Jamal 19.2 H, Plt Count 394, Immature Gran % ( Auto) 1.7, Neut % (Auto) 86.6, Lymph % (Auto) 8.8 L, [place] % (Auto) 2.8, Eos % ( Auto) 0.0, Baso % (Auto) 0.1, Immature Gran # (Auto) 0.3, Neut # 13.0 H, Lymph # 1.3, [place] # 0.4, Eos # 0.0, Baso # 0.0 PLAN: DISCHARGE BACK TO [facility] THE PATIENT WILL BE FOLLOWED BY DR. CHAKRABORTY DURING USUAL [facility]PC ROUNDS IN APPROX ONE WEEK RESUME [facility]PC MEDICATIONS PER LIST PROVIDED BY THE NURSING STAFF NOTE THE CHANGE IN THE AMLODIPINE BESYLATE (NORVASC) ADMINISTRATION TIMES TO GIVE AT HS NOTE THE CHANGE IN THE GUAIFENESIN (MUCINEX) TO TO Q 12 HOURS PRN NOTE THE CHANGE IN OMEPRAZOLE (PRILOSEC) TO BID DO NOT TAKE THE PREDNISONE 5 MG PO DAILY UNTIL THE DOES BELOW IS COMPLETED IN 5 DAYS NEW MEDICATIONS BENAZEPRIL HCL (LOTENSIN) 20 MG PO BID CARAFATE 1 GRAM QID KEFLEX 500 MG PO BID X 5 DAYS PREDNISONE 10 MG PO BID X 5 DAYS, THEN RESUME YOUR 5 MG PO DAILY. GIVE WITH FOOD DUONEBS TID X 30 DAYS K-DUR 40 MEQ PO DAILY LABS CBC WITH DIFF AND CMP IN ONE WEEK, THEN Q 3 MONTHS ACTIVITY MAY PARTICIPATE IN [facility] ACTIVITIES TOLERATED PT/OT PLEASE EVALUATE AND TREAT IF INDICATED PULSE OXIMETRY PRN DIET STEVEN, MECHANICAL SOFT, REGULAR CONSISTENCY CROCHETER HAND PLEASE CONSULT TO PROVIDE FOR OPTIMAL NUTRITIONAL NEEDS SUMMARY THE PATIENT IS ALERT AND ORIENTED TO PERSON ONLY. SHE IS CALM AND COOPERATIVE FOR CARE. SHE HAS BEEN A RESIDENT AT [facility] AND WILL RETURN THERE AT DISCHARGE. SHE IS DEPENDENT FOR CARE. HER DAUGHTER TELLS US THAT SHE WAS ABLE TO WALK WITH ASSISTANCE BACK IN August,. THE DAUGHTER SAID MS. JIMENEZ HAS DECLINED SINCE THAT TIME. SHE IS INCONTINENT OF BOTH BOWEL AND BLADDER. HER SKIN TURGOR IS FAIR. SHE HAS A SMALL SKIN TEAR PRESENT ON ADMISSION TO THE LEFT FOREARM. THE AREA IS REDDENED. NURSING STAFF HAVE BEEN APPLYING CALMOSEPTIN OINTMENT TO THE AREA. OTHERWISE, NO DECUBITUS ULCERS ARE PRESENT AT DISCHARGE. THE DAUGHTER, JAGJIT RODRIGUEZ; IS AWARE AND AGREEABLE FOR DISCHARGE BACK TO [facility] TODAY. SHE DESIRES FOR TRANSPORTATION TO BE PROVIDED BY [facility] IF POSSIBLE. CURRENT CODE STATUS DO NOT RESUSCITATE BRENDA CHAKRABORTY M.D.
[2017-11-07 12:31] VITALS: BP 157/73; TEMP 97.8
[2017-11-07] MEDS ORDERED: NORVASC PO SCH (21:00)
--- NOTE | 2017-11-08 10:39 | PN ---
DATE OF SERVICE: 11/06/17 SUBJECTIVE: The patient was admitted with the bilateral basilar pneumonia and flu. The patient had hypokalemia. Venous Doppler is negative for the clots. REVIEW OF SYSTEMS: CONSTITUTIONAL: No fever, no chills. HEENT: Normal. ENDOCRINE: No weight gain, no weight loss. CVS: No angina symptoms. No CHF symptoms. No palpitations. No atypical chest pain for CAD. No shortness of breath. No PND, no orthopnea. RESPIRATORY: No cough, no hemoptysis. GI: No nausea, no vomiting. No abdominal pain. : No hematuria. No polyuria. MUSCULOSKELETAL: No joint swelling. PSYCHIATRIC: Not anxious. No depression. No suicidal thoughts. No homicidal thoughts. SKIN: Intact. No rash. PHYSICAL EXAMINATION: V/S: Blood pressure 156/88, respiratory rate 20, heart rate 78, temperature 97.9 with saturation is 95% on room air. HEENT: Normocephalic, atraumatic. Mucosa dry. Pallor positive. No icterus. NECK: Supple. No JVD, no carotid bruit. No lymphadenopathy. LUNGS: Basilar crackles. No rales or rhonchi. HEART: S1, S2 normal. No S3. No murmur, gallop or regurgitation. ABDOMEN: Soft, nontender. Bowel sounds active. No rigidity. No rebound or guarding. No CVA tenderness. EXTREMITIES: No clubbing, cyanosis. 1+ edema. MUSCULOSKELETAL: No joint swelling. NEUROLOGIC: Awake, alert, and very hard of hearing. No focal deficit. LYMPHATIC: No lymph nodes palpable. SKIN: Intact. LABS: Sodium 141, potassium 2.8, chloride 100, bicarb 33, BUN 13, creatinine 0.77, WBC 10.35 and hgb 8.6, hct 27.6 and saturation 355. ASSESSMENT: 1. Anemia with positive occult blood test, stable hgb 2. Severe hypokalemia 3. Pneumonia bibasilar 4. Influenza A positive 5. CAD 6. Hypertension 7. Atrial fibrillation, correction anticoagulation PLAN: 1. Continue the Rocephin and Vancomycin and breathing treatments 2. Apixaban 3. Continue to monitor the H&H Will follow the patient in daily rounds. TIME SPENT: More than 35 minutes MTDD
--- NOTE | 2017-11-08 11:05 | PN ---
DATE OF SERVICE: 11/05/17 SUBJECTIVE: Desi is very difficult to hear admitted with the flu positive, dehydration, bibasilar pneumonia. The patient did have leg edema. Venous Doppler done which was negative. REVIEW OF SYSTEMS: CONSTITUTIONAL: No fever, no chills. HEENT: Normal. ENDOCRINE: No weight gain, no weight loss. CVS: No angina symptoms. No CHF symptoms. No palpitations. No atypical chest pain for CAD. No shortness of breath. No PND, no orthopnea. RESPIRATORY: Cough and congestion, no hemoptysis. GI: No nausea, no vomiting. No abdominal pain. : No hematuria. No polyuria. MUSCULOSKELETAL: No joint swelling. PSYCHIATRIC: Not anxious. No depression. No suicidal thoughts. No homicidal thoughts. SKIN: Intact. No rash. PHYSICAL EXAMINATION: V/S: Blood pressure 180/82, respiratory rate 18, heart rate 80, temperature 97.5 with saturation 96%. HEENT: Normocephalic, atraumatic. Mucosa dry. Pallor positive. No icterus. NECK: Supple. No JVD, no carotid bruit. No lymphadenopathy. LUNGS: Bilateral entry is decreased and basilar crackles. No rales or rhonchi. HEART: S1, S2 normal. No S3. No murmur, gallop or regurgitation. ABDOMEN: Soft, nontender. Bowel sounds active. No rigidity. No rebound or guarding. No CVA tenderness. EXTREMITIES: No clubbing, cyanosis or pedal edema. MUSCULOSKELETAL: No joint swelling. NEUROLOGIC: Awake, alert but very hard of hearing. No focal deficit. LYMPHATIC: No lymph nodes palpable. SKIN: Intact. LABS: WBC 11.93, hgb 8.3, hct 26.3, plt count 411, sodium 140, potassium 2.8, chloride 102, bicarb 31, BUN 13, creatinine 0.73 ASSESSMENT: 1. Hypokalemia 2. Anemia, GI bleed 3. Flu A positive 4. Bilateral Basilar pneumonia 5. Very hard of hearing 6. Hypertension 7. Atrial fibrillation on [facility] anticoagulation 8. COPD 9. 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 Continue Eliquis 2.5mg twice a day 2. Keflex 3. Solu-Medrol 40mg Q 12 hours 4. IV fluids on hold 5. Continue Vancomycin with Vancomycin trough levels TIME SPENT: More than 35 minutes MTDD
--- NOTE | 2017-11-14 12:09 | PN ---
DATE OF SERVICE: 11/01/17 SUBJECTIVE: The patient was admitted with pneumonia, hypokalemia, influenza, dehydration. The patient is getting IV potassium. Today the potassium is 3.0. Hemoglobin dropped from 8.5 to 7.6. Coughing, congestion, weakness. REVIEW OF SYSTEMS: CONSTITUTIONAL: Weakness. No fever, no chills. HEENT: Normal. ENDOCRINE: No weight gain, no weight loss. CVS: No angina symptoms. No CHF symptoms. No palpitations. No atypical chest pain for CAD. No shortness of breath. No PND, no orthopnea. RESPIRATORY: Cough and congestion, no hemoptysis. GI: No nausea, no vomiting. No abdominal pain. : No hematuria. No polyuria. MUSCULOSKELETAL: No joint swelling. PSYCHIATRIC: Not anxious. No depression. No suicidal thoughts. No homicidal thoughts. SKIN: Intact. No rash. PHYSICAL EXAMINATION: V/S: Blood pressure 143/72, respiratory rate 16, heart rate 83, temperature 98.2 , saturation 97. HEENT: Normocephalic, atraumatic. Mucosa dry. Pallor positive. No icterus. NECK: Supple. No JVD, no carotid bruit. No lymphadenopathy. LUNGS: Basilar crackles. No rales or rhonchi. HEART: S1, S2 normal. No S3. No murmur, gallop or regurgitation. ABDOMEN: Soft, nontender. Bowel sounds active. No rigidity. No rebound or guarding. No CVA tenderness. EXTREMITIES: Edema is almost resolved. No clubbing or cyanosis MUSCULOSKELETAL: No joint swelling. NEUROLOGIC: Awake, alert, oriented times three. Very hard of hearing. No focal deficit. LYMPHATIC: No lymph nodes palpable. SKIN: Intact. LABS: Sodium 136, potassium 3.0, chloride 102, bicarb 23, BUN 14, creatinine 0.65, white count 8.33, hemoglobin 7.6, hematocrit 23.9, platelet count 393 ASSESSMENT: 1. SEVERE HYPOKALEMIA 2. INFLUENZA A POSITIVE 3. PNEUMONIA 4. DEHYDRATION 5. ANEMIA. WILL RULE OUT GI BLEED 6. ATRIAL FIBRILLATION 7. CORONARY ARTERY DISEASE 9. CHRONIC OBSTRUCTIVE PULMONARY DISEASE EXACERBATION SECONDARY TO INFLUENZA A PLAN: 1. Tamiflu. 2. IV fluids. 3. Anemia profile. 4. Breathing treatments, DuoNebs. 5. Daily I & O's. TIME SPENT: More than 35 minutes MTDD
--- NOTE | 2017-11-15 12:54 | PN ---
DATE OF SERVICE: 11/02/17 SUBJECTIVE: The patient was admitted with flu, dehydration and anemia. Potassium was 3.0 yesterday and she is being given potassium replacements and it came up to 3.7. Still coughing and congested. She has some leg edema on both sides. PHYSICAL EXAMINATION: V/S: Blood pressure 163/83, respiratory rate 24, heart rate 68, temperature 96, saturation 97. HEENT: Normocephalic, atraumatic. Mucosa dry. Pallor positive. No icterus. NECK: Supple. No JVD, no carotid bruit. No lymphadenopathy. LUNGS: Decreased basilar crackles. No rales or rhonchi. HEART: S1, S2 normal. No S3. No murmur, gallop or regurgitation. ABDOMEN: Soft, nontender. Bowel sounds active. No rigidity. No rebound or guarding. No CVA tenderness. EXTREMITIES: 1 + edema in both legs and with calf tenderness. No clubbing or cyanosis MUSCULOSKELETAL: No joint swelling. NEUROLOGIC: Awake, alert, oriented times three. No focal deficit. Very hard of hearing. LYMPHATIC: No lymph nodes palpable. SKIN: Intact. LABS: Sodium 138, potassium 3.7, chloride 104, bicarb 23, BUN 16, creatinine 0.75, white count 11.83, hemoglobin 8.2, hematocrit 26.1, platelet count 526. ASSESSMENT: 1. INFLUENZA A POSITIVE 2. ANEMIA, RULE OUT GI BLEED 3. LEG EDEMA, RULE OUT DVT 4. HYPOKALEMIA, WHICH IS BETTER 5. ALZHEIMER'S DEMENTIA 6. CORONARY ARTERY DISEASE 7. ATRIAL FIBRILLATION ON ELIQUIS 8. ASTHMATIC BRONCHITIS 9. 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 Continue the [facility]. 2. Eliquis twice a day. 3. Rocephin 1 gram daily. 4. Solu-Medrol 40 every 12 hours. 5. Tamiflu 75 mg twice daily. 6. IV fluids at 75 ml per hour. TIME SPENT: More than 35 minutes MTDD
--- NOTE | 2017-11-15 13:02 | PN ---
DATE OF SERVICE: 11/03/17 SUBJECTIVE: The patient is still coughing and congested. There is some swelling seen and some more increase in the breathing, coughing and not able to bring up any phlegm. No fever or chills. The hemoglobin did drop from 8.2 to 7.4 and I assume this is from the hemodilution. PHYSICAL EXAMINATION: V/S: Blood pressure 166/90, respiratory rate 20, heart rate 75, temperature 97.8 , saturation 96 on 2 liters. HEENT: Normocephalic, atraumatic. Mucosa dry. Pallor positive. No icterus. NECK: Supple. No JVD, no carotid bruit. No lymphadenopathy. LUNGS: Basilar crackles with mild expiratory wheeze. No rales or rhonchi. HEART: S1, S2 normal. No S3. No murmur, gallop or regurgitation. ABDOMEN: Soft, nontender. Bowel sounds active. No rigidity. No rebound or guarding. No CVA tenderness. EXTREMITIES: 2+ edema. Venous Doppler negative. No clubbing or cyanosis MUSCULOSKELETAL: No joint swelling. NEUROLOGIC: Awake, alert, oriented times three. No focal deficit. Very hard of hearing. LYMPHATIC: No lymph nodes palpable. SKIN: Intact. LABS: White count 6.73, hemoglobin 7.4, hematocrit 24.1, platelet count 411, sodium 138, potassium 3.8, chloride 107, bicarb 22, BUN 16, creatinine 0.72, glucose 180. ASSESSMENT: 1. INFLUENZA A 2. HYPOKALEMIA, WHICH HAS RESOLVED 3. ANEMIA, PROBABLY FROM THE HEMODILUTION. RULE OUT GI BLEED. 4. LOW EXTREMITY EDEMA, NO DVT 5. 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 HYPERTENSION 8. DYSLIPIDEMIA 9. DEPRESSION PLAN: 1. Continue the Rocephin, breathing treatments, Tamiflu. 2. Stop the IV fluids. 3. Lasix 20 mg IV push today. TIME SPENT: More than 35 minutes MTDD
--- NOTE | 2017-11-16 14:25 | PN ---
DATE OF SERVICE: 11/04/17 SUBJECTIVE: The patient's hemoglobin dropped to 7.2. Stool for occult blood test is positive. She still has some coughing. No fever or chills. REVIEW OF SYSTEMS: CONSTITUTIONAL: No fever, no chills. HEENT: Normal. ENDOCRINE: No weight gain, no weight loss. CVS: No angina symptoms. No CHF symptoms. No palpitations. No atypical chest pain for CAD. No shortness of breath. No PND, no orthopnea. RESPIRATORY: Cough, no hemoptysis. GI: No nausea, no vomiting. No abdominal pain. : No hematuria. No polyuria. MUSCULOSKELETAL: No joint swelling. PSYCHIATRIC: Not anxious. No depression. No suicidal thoughts. No homicidal thoughts. SKIN: Intact. No rash. PHYSICAL EXAMINATION: V/S: Blood pressure 122/84, respiratory rate 20, heart rate 66, temperature 97.5 , saturation 97. HEENT: Normocephalic, atraumatic. Mucosa dry. Pallor positive. NECK: Supple. No JVD, no carotid bruit. No lymphadenopathy. LUNGS: Decreased basilar crackles. No rales or rhonchi. HEART: S1, S2 normal. No S3. No murmur, gallop or regurgitation. ABDOMEN: Soft, nontender. Bowel sounds active. No rigidity. No rebound or guarding. No CVA tenderness. EXTREMITIES: 1+ edema. No clubbing or cyanosis MUSCULOSKELETAL: No joint swelling. NEUROLOGIC: Awake, alert, oriented times three. No focal deficit. Very hard of hearing LYMPHATIC: No lymph nodes palpable. SKIN: Intact. LABS: Occult blood test positive. White count 7.93, hemoglobin 7.2, hematocrit 23.1, platelet count 368, sodium 137, potassium 3.4, chloride 105, bicarb 25, BUN 14, creatinine 0.70, glucose 174, calcium 7.8. ASSESSMENT: 1. INFLUENZA POSITIVE 2. COMMUNITY ACQUIRED PNEUMONIA 3. ANEMIA WITH POSITIVE OCCULT BLOOD TEST 4. CORONARY ARTERY DISEASE 5. CONGESTIVE HEART FAILURE 6. ATRIAL FIBRILLATION 7. CHRONIC KIDNEY DISEASE 8. DEPRESSION PLAN: 1. Continue Vancomycin, Rocephin. 2. Will add Protonix 40 p.o. twice daily. 3. Type and Crossmatch 2 units and hold 2 units. TIME SPENT: More than 35 minutes MTDD
--- NOTE | 2017-11-20 15:16 | PN ---
DATE OF SERVICE: 11/07/17 SUBJECTIVE: The patient's son is in the room and worried about the patient being not able to walk. He says that all these things started just before Analy when she had a urinary tract infection for which the patient was initially taken to [facility]. After that, she got so weak that she was admitted to [facility]. Then she developed complications there with C-diff infection for which the patient was treated and she was clear from C -diff infection and then she started having the flu and acute renal failure. The patient is still complaining of the weakness, tiredness and not able to get out of the bed. She has some coughing. No fever or chills. REVIEW OF SYSTEMS: CONSTITUTIONAL: Weakness. No fever, no chills. HEENT: Normal. ENDOCRINE: No weight gain, no weight loss. CVS: No angina symptoms. No CHF symptoms. No palpitations. No atypical chest pain for CAD. No shortness of breath. No PND, no orthopnea. RESPIRATORY: Cough, no hemoptysis. GI: No nausea, no vomiting. No abdominal pain. : No hematuria. No polyuria. MUSCULOSKELETAL: No joint swelling. PSYCHIATRIC: Not anxious. No depression. No suicidal thoughts. No homicidal thoughts. SKIN: Intact. No rash. PHYSICAL EXAMINATION: V/S: Blood pressure 170/80, respiratory rate 18, heart rate 67, temperature 98.2 , saturation 98. HEENT: Normocephalic, atraumatic. Mucosa dry. Pallor positive. No icterus. NECK: Supple. No JVD, no carotid bruit. No lymphadenopathy. LUNGS: Bilateral air entry is decreased with basilar crackles. No rales or rhonchi. HEART: S1, S2 normal. No S3. No murmur, gallop or regurgitation. ABDOMEN: Soft, nontender. Bowel sounds active. No rigidity. No rebound or guarding. No CVA tenderness. EXTREMITIES: No pedal edema. No clubbing or cyanosis MUSCULOSKELETAL: No joint swelling. NEUROLOGIC: Awake, alert, oriented times three. No focal deficit. LYMPHATIC: No lymph nodes palpable. SKIN: Intact. LABS: White count 14.98, hemoglobin 8.7, hematocrit 28.5, platelet count 394, sodium 137, potassium 4.3, chloride 101, BUN 15, creatinine 0.78 and glucose 176. ASSESSMENT: 1. ANEMIA WITH POSITIVE OCCULT BLOOD TEST, STABLE HEMOGLOBIN 2. SEVERE HYPOKALEMIA 3. PNEUMONIA BIBASILAR 4. INFLUENZA A POSITIVE 5. CORONARY ARTERY DISEASE 6. HYPERTENSION 7. ATRIAL FIBRILLATION, [facility] ANTICOAGULATION PLAN: 1. Discharge back to [facility]. 2. The patient will be followed by Dr. Crespo on [facility] rounds in one week. 3. Resume [facility] medications. TIME SPENT: More than 35 minutes MTDD
--- NOTE | 2017-12-20 10:38 | HP ---
DATE OF SERVICE: 10/31/17 CHIEF COMPLAINT/HISTORY OF PRESENT ILLNESS: The patient was seen and examined in the emergency room. TIME SPENT: MORE THAN 70 minutes JONEL
--- NOTE | 2017-12-20 11:54 | DS ---
DATE OF SERVICE: 11/07/17 FINAL DIAGNOSIS: 1. HYPOKALEMIA, RESOLVED 2. INFLUENZA A POSITIVE 3. GAIT DIFFICULTY 4. CAD AND HISTORY OF MO 5. DYSLIPIDEMIA 6. CHF, DIASTOLIC 7. ATRIAL FIBRILLATION, PAROXYSMAL 8. HYPERTENSION 9. HYPOTHYROIDISM 10. COPD 11. KIDNEY DISEASE 12. ANEMIA (POSITIVE OCCULT STOOL), STABLE H & H 13. GERD 14. CONSTIPATION 15. DIVERTICULITIS BY HISTORY 16. 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 OSTEOARTHRITIS, BOTH HIPS, SPINE 19. HEARING IMPAIRED 20. APPENDECTOMY 21. CHOLECYSTECTOMY 22. TONSILLECTOMY 23. RIGHT WRIST FRACTURE 24. FORMER SMOKER DISCHARGE INSTRUCTIONS: Followup appointment with Dr. Crespo during [facility] rounds in approximately one week. PLAN: CBC with differential and CMP in one week, then q.3 months Pulse oximetry p.r.n. MEDICATIONS AT DISCHARGE: Amlodipine (Norvasc) 5 mg p.o. bedtime ELIZABETH (changed from daily) Eliquis 2.5 mg p.o. b.i.d. ELIZABETH Vitamin C 1000 mg p.o. daily ELIZABETH Benazepril (Lotensin) 20 mg p.o.b .i.d. ELIZABETH (increased from daily) Benztropine (Cogentin) 0.5 mg p.o. bedtime ELIZABETH Bumetanide (Bumex) 1 mg p.o. q.d ELIZABETH Cetirizine (Zyrtec) 10 mg p.o. daily ELIZABETH Chlordiazepoxide/Clidinium (Librax 2.5/5 mg) one cap p.o. a.c. h.s. ELIZABETH Docusate Sodium (Colace) 100 mg p.o. daily ELIZABETH Ferrous Sulfate 324 mg p.o. t.i.d. ELIZABETH Flecainide (Tambocor) 100 mg p.o. q.12h ELIZABETH Furosemide (Lasix tab) 10 mg p.o. q.48h ELIZABETH Guaifenesin (Mucinex) 600 mg p.o. q.12h p.r.n. coughing (changed to p.r.n.) Levothyroxine (Synthroid) 75 mcg p.o. q.d a.c. ELIZABETH Lorazepam (Ativan) 0.5 mg p.o. q.i.d. ELIZABETH Losartan (Cozaar) 100 mg p.o. daily ELIZABETH Lopressor 50 mg p.o. q.12hr ELIZABETH Miralax 17 gm p.o. daily ELIZABETH Sertraline (Zoloft) 200 mg p.o. daily ELIZABETH NEW PRESCRIPTIONS: Resume [facility] medications as per list provided by the nursing staff Note the change in the Amlodipine Besylate (Norvasc) administration times to give at h.s. Note the change in the Guaifenesin (Mucinex) to q.12hr p.r.n. Note the change in Omeprazole (Prilosec) to b.i.d. Do not take the Prednisone 5 mg p.o. daily until the dose below is completed in 5 days NEW MEDICATIONS: Benazepril HCL (Lotensin) 20 mg p.o. b.i.d. Carafate 1 gm q.i.d. Keflex 500 mg p.o. b.i.d times 5 days Prednisone 10 mg p.o. b.i.d. times 5 days, then resume your 5 mg p.o. daily. Give with food Duonebs t.i.d. times 30 days K-Dur 40 mEq p.o. daily MEDICATION CHANGES: custodial medications reviewed Current clinical status Discharge plans Follow up in the [facility] DIET INSTRUCTIONS: STEVEN, mechanical soft, regular consistency Emissions Engineer please consult to provide for optimal nutritional needs ACTIVITY: May participate in [facility] activities as tolerated PT/OT please evaluate and treat if indicated SMOKING: Former smoker None now DISEASE SPECIFIC EDUCATION: Provided to the daughter, Inez Noe Medication changes custodial medications reviewed Current clinical status Discharge plans Follow up in the [facility] HOSPITAL COURSE: This patient was sent from the [facility] for cough and congestion for one week. Shortness of breath, saturation dropped to 80s at the [facility]. The patient was put on nonrebreather and sent to the emergency room. In the emergency room, the patient was seen by me. Influenza A was positive. ABG showed pH 7.508, pc02 36.8, p02 75. Hemoglobin 8.5. Potassium was 2.5. CT of the chest was done. Bilateral bronchial thickening noted on CT, most likely consistent with infection. At that time, the patient was admitted to the hospital for the severe hypokalemia, IV antibiotics and breathing treatments. As the patient was admitted, the patient was given breathing treatments, Rocephin, Vancomycin and Solu-Medrol 40 q.12hr. Potassium replaced. Continue the rest of the [facility] medications. The patient is on Eliquis 2.5 p.o. b.i.d. for atrial fibrillation which is continued. Initially Solu-Medrol was 80 , one time dose was given. IV fluids were also given. Potassium was replaced slowly. Stool for occult blood test was positive. Vancomycin trough levels were within normal limits. BUN, creatinine were normal. Potassium replaced went up to 4.3. Hemoglobin stayed steady at 8.5, 7.6, 7.47, 7.2. As the patient's condition has improved and feeling better, at that time she has been discharged back to the [facility]. Repeat chest x-ray is done on November 06, bronchial wall thickening and subtle patchy bilateral lung infiltrates were seen but clinically the patient was a lot better. At that time, she is discharged home. CURRENT CODE STATUS: Do not resuscitate. TIME SPENT: MORE THAN 65 MINUTES MTDD
== END 2017-11-07 12:55 | DRG 641 ==
LOC: ED 05:31 → MEDSURG B 08:53
PROVIDERS: ADMIT Emergency Medicine; ATTEND Emergency Medicine
DX: E87.6 Hypokalemia (principal); I50.30 Unspecified diastolic (congestive) heart failure; K57.92 Diverticulitis of intestine, part unspecified, without perforation or abscess without bleeding; J10.1 Influenza due to other identified influenza virus with other respiratory manifestations; R26.9 Unspecified abnormalities of gait and mobility; I25.10 Atherosclerotic heart disease of native coronary artery without angina pectoris; I25.2 Old myocardial infarction; E78.5 Hyperlipidemia, unspecified; I48.0 Paroxysmal atrial fibrillation; I10 Essential (primary) hypertension; E03.9 Hypothyroidism, unspecified; J44.9 Chronic obstructive pulmonary disease, unspecified; N28.9 Disorder of kidney and ureter, unspecified; D64.9 Anemia, unspecified; K21.9 Gastro-esophageal reflux disease without esophagitis; K59.00 Constipation, unspecified; F41.8 Other specified anxiety disorders; M35.3 Polymyalgia rheumatica; M16.0 Bilateral primary osteoarthritis of hip; H91.90 Unspecified hearing loss, unspecified ear; Z87.891 Personal history of nicotine dependence
CPT/HCPCS: 36415; 80053; 80202; 82272; 82550; 82607; 82728; 82746; 82803; 83540; 83550; 83605; 83880; 84145; 84466; 84484; 85007; 85025; 85045; 86850; 86900; 86922; 87040; 87081; 87502; 93005; 93010; 94640; 96365; 96367; 96375; 99284

== ENCOUNTER 2018-01-05 03:47 | Inpatient (IN) ==
[2018-01-05] MEDS ORDERED: DUONEB NEB STA (04:18)
[2018-01-05] MEDS ORDERED: SOLU-MEDROL 125 MG IVP STA (04:27)
--- NOTE | 2018-01-05 04:31 | ED.PDOC ---
General ED Provider: Dr. MATTHEW LIAO Chief Complaint: Shortness of Air Stated Complaint: Pateint is an 87 year old with multiple medical problems who comes to the ER by ambulance with increasing shortness of breath and cough for the past several days not getting better. She was also noted to have black stools. She denies any chest pain. Time Seen by Physician: 04:15 Mode of Arrival: Ambulance Information Source: Patient, Halfway, EMT Primary [facility] Nursing and Triage Documentation Reviewed and Agree: Yes Reviewed sepsis parameters & appropriate labs ordered?: No System Inflammatory Response Syndrome: Not Applicable Sepsis Protocol: For patient's 13 years and over: Temp is 96.8 and below OR 101 and greater Pulse >90 BPM Resp >20/minute Acutely Altered Mental Status Are patient's symptoms suggestive of a new infection, such as: -Pneumonia -Skin, Soft Tissue -Endocarditis -UTI -Bone, Joint Infection -Implantable Device -Acute Abdominal Infection -Wound Infection -Meningitis -Blood Stream Catheter Infection -Unknown System Inflammatory Response Syndrome: Not Applicable Respiratory Complaint Exam - Shortness of Air Complaint/Exam Onset/Duration: 2 days Symptoms Are: Still present Timing: Constant Initial Severity: Moderate Current Severity: Severe Character: Reports: Dyspnea at rest Aggravating: Reports: URI, Weather Alleviating: Reports: EMS treatment, Oxygen, Upright position Associated Signs and Symptoms: Reports: Cough, Wheezing, Labored breathing. Denies: Chest pain with cough, Chest pain, Fever, Chills, Diaphoresis, Nasal congestion, Dizziness, Calf pain, Calf swelling, Rapid breathing, Decreased intake Pulmonary Embolism Risk Factors: Reports: None Cardiac Risk Factors: Reports: Prior MA, CAD, Hypertension, CHF. Denies: Smoking Pseudomonas Risk Factors: Reports: Chronic Lung Disease Tuberculosis Risk Factors: Reports: Corticosteriod use Home Oxygen Use: No Recent Stress Test: No Recent Echo/LV Function: No Respiratory Distress: Moderate Stridor Present: No Tracheal Deviation: No Subcutaneous Emphysema: No Accessory Muscle Use: No Retractions: Not Present Diminished Breath Sounds: Yes Prolonged Expiratory Phase: Yes Unable to Speak Full Sentences: No Fatigue: No Leg Swelling: Yes (bilateral ) Ivett's Sign Present: No Grunting Respirations: No Kussmaul Respirations: No Differential Diagnoses: CHF, Pulmonary Edema, COPD Exacerbation, Bronchitis, URI Quality Indicator For Non-Traumatic Chest Pain/Syncope: EKG Performed Related Surgical History: Reports: None Review of Systems - Review Of Systems Constitutional: Reports: Weakness, Loss of appetite. Denies: Diaphoresis Ears, Nose, Mouth, Throat: Reports: No symptoms Respiratory: Reports: Cough, Short of air, Wheezing Cardiac: Reports: Edema (lower ext ). Denies: Chest pain GI: Reports: Other (melen). Denies: Diarrhea : Reports: No symptoms Musculoskeletal: Reports: No symptoms Skin: Reports: No symptoms Neurological: Reports: Anxiety Endocrine: Reports: No symptoms Hematologic/Lymphatic: Reports: No symptoms All Other Systems: Reviewed and Negative Past Medical History - Past Medical History Previously Healthy: Yes Endocrine: Reports: Hypothyroid, Dyslipidemia Cardiovascular: Reports: CAD, Hypertension, CHF, A-Fib Respiratory: Reports: COPD Hematological: Reports: None Gastrointestinal: Reports: GERD Genitourinary: Reports: None Neuro/Psych: Reports: Anxiety Musculoskeletal: Reports: Arthritis, Back Pain Cancer: Reports: None Last Menstrual Period: menopausal - Surgical History General Surgical History: Reports: Appendectomy, Cholecystectomy, Tonsillectomy , Orthopedic (rt ankle) - Family History Family History: Reports: None - Social History Smoking Status: Former smoker Hx Substance Use: No Alcohol Screening: None - Immunizations Tetanus Shot up to Date: No (unknown) Physical Exam - Physical Exam Appearance: Ill-appearing Ill-appearing: Moderate Eyes: ALESSIO, EOMI, Conjunctiva clear ENT: Dry mucosa Neck: Supple Respiratory: Airway patent, Wheezes Cardiovascular: RRR, Pulses normal, No rub, No murmur GI/: Soft Musculoskeletal: Edema (Lower extremity ) Neurological: Alert, Oriented Psychiatric: Anxious Interpretation - Radiology Interpretation Radiology Interpretation By: ED Physician Radiology Results: Negative Exam Interpreted: CXR (COPD changes ) - EKG Interpretation Time of EKG #1: 04:40 Rate: Normal Rhythm: Sinus (with Sinus Arrhythmia) Interpretation: old septal infact. Critical Care Note - Critical Care Note Total Time (mins): 40 Course - Course Orders, Labs, Meds: Orders Category Date Time Status ABG DRAW REQUEST Stat CARDIO 01/05/18 04:19 Ordered EKG-(ED ONLY) Stat CARDIO 01/05/18 04:18 Ordered NEBULIZER TREATMENT Routine CARDIO 01/05/18 04:41 Ordered NEBULIZER TREATMENT Stat CARDIO 01/05/18 04:19 Ordered OXYGEN Routine CARDIO 01/05/18 04:38 Ordered ACTIVITY .Early Mobilization for VTE Prevention CARE 01/05/18 04:38 Ordered INTAKE & OUTPUT Q8HR CARE 01/05/18 04:38 Ordered VITAL SIGNS Q4HR CARE 01/05/18 04:38 Ordered 2 GRAM SODIUM DIET DIETARY 01/05/18 Breakfast Ordered CARDIAC DIET DIETARY 01/05/18 Breakfast Ordered ED APPLY O2 .ONCE EMERGENCY 01/05/18 04:18 Active ED IV/MEDIPORT/POWERPORT .ONCE EMERGENCY 01/05/18 04:18 Active ABG Stat LAB 01/05/18 04:18 Ordered B-TYPE NATRIURETIC PEPTIDE Stat LAB 01/05/18 04:18 Ordered BASIC METABOLIC PANEL DAILY@0600 LAB 01/05/18 06:00 Ordered BASIC METABOLIC PANEL DAILY@0600 LAB 01/06/18 06:00 Ordered BLOOD CULTURE (ED ONLY) Stat LAB 01/05/18 04:21 Ordered CBC W/ AUTO DIFF DAILY@0600 LAB 01/05/18 06:00 Ordered CBC W/ AUTO DIFF DAILY@0600 LAB 01/06/18 06:00 Ordered CBC W/ AUTO DIFF Stat LAB 01/05/18 04:18 Ordered COMPREHENSIVE METABOLIC PANEL Stat LAB 01/05/18 04:18 Ordered CREATINE KINASE Stat LAB 01/05/18 04:18 Ordered LACTIC ACID Stat LAB 01/05/18 04:21 Ordered OCCULT BLOOD, STOOL Stat LAB 01/05/18 04:21 Ordered OCCULT BLOOD, STOOL Stat LAB 01/05/18 04:24 Uncollected PROCALCITONIN Stat LAB 01/05/18 04:21 Ordered TROPONIN I Stat LAB 01/05/18 04:18 Ordered 0.9 % Sodium Chloride [Saline Flush] MEDS 01/05/18 04:18 Ordered 1 syr IVF PRN PRN Acetaminophen [Tylenol] MEDS 01/05/18 04:38 Ordered 650 mg PO Q4H PRN Azithromycin [Zithromax] MEDS 01/05/18 04:38 Stat 500 mg PO ONCE STA Ceftriaxone Sodium [Rocephin] 1 gm MEDS 01/05/18 05:00 Ordered 0.9 % Sodium Chloride [Sodium Chloride] 50 ml IV DAILY Ipratropium/Albuterol Neb [Duoneb] MEDS 01/05/18 04:18 Discontinued 1 vial NEB ONCE STA Ipratropium/Albuterol Neb [Duoneb] MEDS 01/05/18 04:38 Ordered 1 vial NEB RTQ2H PRN Ipratropium/Albuterol Neb [Duoneb] MEDS 01/05/18 06:00 Ordered 1 vial NEB RTQID Methylprednisolone Sod Succ/Pf [Solu-Medrol 125 mg] MEDS 01/05/18 04:27 Discontinued 125 mg IVP ONCE STA Methylprednisolone Sod Succ/Pf [Solu-Medrol 125 mg] MEDS 01/05/18 05:00 Ordered 125 mg IVP Q8H Ondansetron HCl/Pf [Zofran 4 mg/2 ml] MEDS 01/05/18 04:38 Ordered 4 mg IVP Q6H PRN RESUSCITATION STATUS Routine OTHERS 01/05/18 04:38 Ordered CHEST, 1V AP ONLY Stat RADS 01/05/18 04:18 Completed Medications Generic Name Dose Route Start Last Admin Trade Name Freq PRN Reason Stop Dose Admin Acetaminophen 650 mg 01/05/18 04:38 Tylenol PO Q4H PRN Fever Albuterol/Ipratropium 1 vial 01/05/18 04:38 Duoneb NEB RTQ2H PRN Wheezing Albuterol/Ipratropium 1 vial 01/05/18 06:00 Duoneb NEB RTQID ELIZABETH Ceftriaxone Sodium 1 gm/ 50 mls @ 75 mls/hr 01/05/18 05:00 Sodium Chloride IV DAILY ELIZABETH Methylprednisolone Sodium Succinate 125 mg 01/05/18 05:00 Solu-Medrol 125 Mg IVP Q8H ELIZABETH Ondansetron HCl 4 mg 01/05/18 04:38 Zofran 4 Mg/2 Ml IVP Q6H PRN nausea and vomiting Sodium Chloride 1 syr 01/05/18 04:18 Saline Flush IVF PRN PRN To flush IV Discontinued Medications Generic Name Dose Route Start Last Admin Trade Name Freq PRN Reason Stop Dose Admin Albuterol/Ipratropium 1 vial 01/05/18 04:18 Duoneb NEB 01/05/18 04:19 ONCE STA Azithromycin 500 mg 01/05/18 04:38 01/05/18 04:45 Zithromax PO 01/05/18 04:39 500 mg ONCE STA Administration Methylprednisolone Sodium Succinate 125 mg 01/05/18 04:27 01/05/18 04:39 Solu-Medrol 125 Mg IVP 01/05/18 04:28 125 mg ONCE STA Administration Vital Signs: Temp Pulse Resp BP Pulse Ox 01/05/18 03:55 98.2 F 72 24 150/88 H 98 Departure - Departure Time of Disposition: 05:15 Disposition: ADMITTED INPATIENT Discharge Problem: Acute lower GI bleeding, COPD exacerbation Condition: Stable Pt referred to PMD for follow-up: No (admitted ) IPMP verified?: No Allergies/Adverse Reactions: Allergies meloxicam [From Mobic] Adverse Reaction (Verified 01/05/18 03:49) morphine Adverse Reaction (Verified 01/05/18 03:49) tramadol Adverse Reaction (Verified 01/05/18 03:49) Home Medications: Ambulatory Orders Bumetanide [Bumex] 1 mg PO DAILY 02/04/14 Levothyroxine Sodium [Tirosint] 0.075 mg PO DAILY 02/04/14 Lorazepam [Ativan] 0.5 mg PO QID 02/04/14 Mometasone/Formoterol [Dulera 100 Mcg/5 Mcg Inhaler] 1 spray INH BID 02/04/14 Acetaminophen [Tylenol] 650 mg PO Q12H PRN 10/31/17 Apixaban [Eliquis] 2.5 mg PO BID 10/31/17 Ascorbic Acid [C-1000] 1,000 mg PO DAILY 10/31/17 Benztropine Mesylate 0.5 mg PO BEDTIME 10/31/17 Cetirizine HCl [Zyrtec] 10 mg PO DAILY 10/31/17 Chlordiazepoxide/Clidinium Br [Chlordiazepoxide-Clidinium Cap] 1 each PO ACHS Cholecalciferol (Vitamin D3) [Vitamin D3] 2,000 unit PO DAILY 10/31/17 Docusate Sodium 100 mg PO DAILY 10/31/17 Ferrous Sulfate 325 mg PO TID 10/31/17 Flecainide Acetate 100 mg PO Q12HR 10/31/17 Fluticasone Propionate [Flonase] 1 spray NS DAILY PRN 10/31/17 Furosemide [Lasix] 10 mg PO EVERY OTHER DAY 10/31/17 Losartan Potassium 100 mg PO DAILY 10/31/17 Metoprolol Tartrate 50 mg PO Q12HR 10/31/17 Phenol [Chloraseptic [place]] 1 spray TP Q2HR PRN 10/31/17 Polyethylene Glycol 3350 [Miralax] 17 gm PO DAILY 10/31/17 Sertraline HCl 200 mg PO DAILY 10/31/17 Tramadol HCl [Ultram] 50 mg PO Q6HR PRN 10/31/17 Amlodipine Besylate 5 mg PO BEDTIME #30 tablet 11/07/17 Benazepril HCl [Lotensin] 20 mg PO BID #60 tablet 11/07/17 Cephalexin [Keflex] 500 mg PO Q12HR 5 Days #10 capsule 11/07/17 Guaifenesin 400 mg PO PRN PRN #60 tablet 11/07/17 Ipratropium/Albuterol Neb [Duoneb] 1 vial NEB RTQ8H 30 Days #90 vial.neb Omeprazole 20 mg PO BIDAC #60 tablet. 11/07/17 Potassium Chloride [K-Dur] 40 meq PO DAILY #30 tablet.er 11/07/17 Prednisone 5 mg PO DAILY #30 tablet 11/07/17 Prednisone 10 mg PO BIDWM #10 tablet 11/07/17 Sucralfate Susp [Carafate] 1 gm PO ACHS #120 cup 11/07/17
--- NOTE | 2018-01-05 04:37 | DI ---
Exam: Chest one-view History: Shortness of breath FINDINGS: Normal cardiomediastinal contours. Normal pulmonary vasculature. No infiltrative opaciti es. Atherosclerotic calcification of the aorta. Senescent changes of the chest wall. Impression: Senescent chest. No acute cardiopulmonary disease.
[2018-01-05] MEDS ORDERED: ZITHROMAX PO STA (04:38)
[2018-01-05] MEDS ORDERED: TYLENOL PO PRN (04:38)
[2018-01-05] MEDS ORDERED: ZOFRAN 4 MG/2 ML IVP PRN (04:38)
[2018-01-05] MEDS ORDERED: DUONEB NEB PRN (04:38)
[2018-01-05] MEDS ORDERED: PROTONIX IV IVP STA (04:50)
[2018-01-05] MEDS ORDERED: ROCEPHIN ONE (04:55)
[2018-01-05] MEDS: ROCEPHIN 1 GM in SODIUM CHLORIDE 50 ML IV SCH ×2 (05:01→09:17)
[2018-01-05] MEDS ORDERED: GUAIFENESIN 400 MG PO PRN (05:03)
[2018-01-05] MEDS ORDERED: ULTRAM PO PRN (05:03)
[2018-01-05] MEDS: SOLU-MEDROL 125 MG IVP SCH ×3 (05:23→22:55)
[2018-01-05] MEDS ORDERED: PRILOSEC ONE (05:33)
[2018-01-05] MEDS: CARAFATE PO SCH ×4 (05:42→20:24)
[2018-01-05] MEDS: DUONEB NEB SCH ×4 (05:47→22:03)
[2018-01-05 06:00] VITALS: BMI 25.9
[2018-01-05] MEDS ORDERED: NON-FORMULARY MEDICATION (Omeprazole [Omeprazole] 20 MG) PO SCH (06:30)
[2018-01-05] MEDS ORDERED: LEVOTHYROXINE SODIUM PO SCH (09:00)
[2018-01-05] MEDS ORDERED: TAMBOCOR PO SCH (09:00)
[2018-01-05] MEDS ORDERED: NON-FORMULARY MEDICATION (Apixaban [Eliquis] 2.5 MG) PO SCH (09:00)
[2018-01-05] MEDS ORDERED: MOMETASONE INH SCH ×2 (09:00)
[2018-01-05] MEDS ORDERED: ASCORBIC ACID 1000 MG PO SCH (09:00)
[2018-01-05] MEDS ORDERED: SERTRALINE HCL 200 MG PO SCH (09:00)
[2018-01-05] MEDS ORDERED: NON-FORMULARY MEDICATION (Cholecalciferol (Vitamin D3) [Vitamin D3] 2,000 UNIT) PO SCH (09:00)
[2018-01-05] MEDS ORDERED: FORMOTEROL INH SCH ×2 (09:00)
[2018-01-05] MEDS ORDERED: NON-FORMULARY MEDICATION (Ferrous Sulfate [Ferrous Sulfate] 325 MG) PO SCH (09:00)
[2018-01-05] MEDS: ZYRTEC PO SCH (09:13)
[2018-01-05] MEDS: VITAMIN D PO SCH (09:13)
[2018-01-05] MEDS: TAMBOCOR PO SCH ×2 (09:13→20:24)
[2018-01-05] MEDS: ZOLOFT PO SCH (09:13)
[2018-01-05] MEDS: LOPRESSOR PO SCH ×2 (09:14→20:24)
[2018-01-05] MEDS: BUMEX PO SCH (09:14)
[2018-01-05] MEDS: K-DUR PO SCH (09:14)
[2018-01-05] MEDS: COLACE PO SCH (09:14)
[2018-01-05] MEDS: FERROUS SULFATE PO SCH ×3 (09:14→20:26)
[2018-01-05] MEDS: ATIVAN PO SCH ×4 (09:14→20:26)
[2018-01-05] MEDS: COZAAR PO SCH (09:14)
[2018-01-05] MEDS: VITAMIN C PO SCH (09:14)
[2018-01-05] MEDS: ELIQUIS PO SCH ×2 (09:15→20:24)
[2018-01-05] MEDS: MIRALAX PO SCH (09:16)
[2018-01-05] MEDS: SYMBICORT 160-4.5 MCG INHALER IH SCH ×2 (09:16→20:24)
[2018-01-05] MEDS: LIBRAX 5/2.5 MG PO SCH ×4 (09:17→20:25)
[2018-01-05] MEDS ORDERED: PRILOSEC PO SCH (17:00)
[2018-01-05] MEDS: COGENTIN PO SCH (20:27)
[2018-01-05] MEDS: NORVASC PO SCH (20:27)
[2018-01-05] MEDS ORDERED: BENZTROPINE MESYLATE 0.5 MG PO SCH (21:00)
[2018-01-05] MEDS: PROTONIX IV IVP SCH (22:55)
[2018-01-06] MEDS: DUONEB NEB SCH ×4 (05:01→20:10)
[2018-01-06] MEDS: LIBRAX 5/2.5 MG PO SCH ×4 (05:39→20:09)
[2018-01-06] MEDS: BUMEX PO SCH (05:39)
[2018-01-06] MEDS: SOLU-MEDROL 125 MG IVP SCH ×3 (05:39→20:59)
[2018-01-06] MEDS: CARAFATE PO SCH ×4 (05:39→20:07)
[2018-01-06] MEDS: ROCEPHIN 1 GM in SODIUM CHLORIDE 50 ML IV SCH (09:21)
[2018-01-06] MEDS: MIRALAX PO SCH (09:22)
[2018-01-06] MEDS: LOPRESSOR PO SCH ×2 (09:22→20:09)
[2018-01-06] MEDS: PROTONIX IV IVP SCH ×2 (09:22→20:58)
[2018-01-06] MEDS: ATIVAN PO SCH ×4 (09:23→20:09)
[2018-01-06] MEDS: TAMBOCOR PO SCH ×2 (09:24→20:07)
[2018-01-06] MEDS: FERROUS SULFATE PO SCH ×3 (09:24→20:10)
[2018-01-06] MEDS: SYNTHROID PO SCH (09:24)
[2018-01-06] MEDS: VITAMIN D PO SCH (09:25)
[2018-01-06] MEDS: COZAAR PO SCH (09:25)
[2018-01-06] MEDS: K-DUR PO SCH (09:25)
[2018-01-06] MEDS: COLACE PO SCH (09:26)
[2018-01-06] MEDS: VITAMIN C PO SCH (09:26)
[2018-01-06] MEDS: ZYRTEC PO SCH (09:26)
[2018-01-06] MEDS: ZOLOFT PO SCH (09:27)
[2018-01-06] MEDS: SYMBICORT 160-4.5 MCG INHALER IH SCH ×2 (09:27→20:07)
[2018-01-06] MEDS: ELIQUIS PO SCH ×2 (09:28→20:07)
[2018-01-06] MEDS: NORVASC PO SCH (20:09)
[2018-01-06] MEDS: COGENTIN PO SCH (20:11)
[2018-01-07] MEDS: DUONEB NEB SCH ×4 (04:56→20:00)
[2018-01-07] MEDS: CARAFATE PO SCH ×4 (06:04→21:13)
[2018-01-07] MEDS: LIBRAX 5/2.5 MG PO SCH ×4 (06:05→21:13)
[2018-01-07] MEDS: SOLU-MEDROL 125 MG IVP SCH ×3 (06:05→21:09)
[2018-01-07] MEDS: BUMEX PO SCH (06:05)
[2018-01-07] MEDS: SYNTHROID PO SCH (06:05)
[2018-01-07] MEDS: ATIVAN PO SCH ×4 (09:28→21:13)
[2018-01-07] MEDS: COLACE PO SCH (09:29)
[2018-01-07] MEDS: COZAAR PO SCH (09:30)
[2018-01-07] MEDS: ELIQUIS PO SCH ×2 (09:30→21:14)
[2018-01-07] MEDS: FERROUS SULFATE PO SCH ×3 (09:32→21:13)
[2018-01-07] MEDS: LOPRESSOR PO SCH ×2 (09:33→21:14)
[2018-01-07] MEDS: K-DUR PO SCH (09:33)
[2018-01-07] MEDS: MIRALAX PO SCH (09:35)
[2018-01-07] MEDS: PROTONIX IV IVP SCH ×2 (09:36→21:09)
[2018-01-07] MEDS: ROCEPHIN 1 GM in SODIUM CHLORIDE 50 ML IV SCH (09:38)
[2018-01-07] MEDS: SYMBICORT 160-4.5 MCG INHALER IH SCH ×2 (09:38→21:09)
[2018-01-07] MEDS: TAMBOCOR PO SCH ×2 (09:42→21:13)
[2018-01-07] MEDS: VITAMIN D PO SCH (09:43)
[2018-01-07] MEDS: VITAMIN C PO SCH (09:43)
[2018-01-07] MEDS: ZOLOFT PO SCH (09:46)
[2018-01-07] MEDS: ZYRTEC PO SCH (09:46)
[2018-01-07] MEDS: VANCOMYCIN 1 GM in SODIUM CHLORIDE 250 ML IV SCH (10:39)
[2018-01-07] MEDS: NORVASC PO SCH (21:14)
[2018-01-07] MEDS: COGENTIN PO SCH (21:14)
[2018-01-08] MEDS: DUONEB NEB SCH ×4 (05:45→20:35)
[2018-01-08] MEDS: BUMEX PO SCH (06:15)
[2018-01-08] MEDS: SOLU-MEDROL 125 MG IVP SCH ×3 (06:15→22:04)
[2018-01-08] MEDS: SYNTHROID PO SCH (06:15)
[2018-01-08] MEDS: CARAFATE PO SCH ×4 (06:15→22:07)
[2018-01-08] MEDS: LIBRAX 5/2.5 MG PO SCH ×4 (06:17→22:07)
[2018-01-08] MEDS: ROCEPHIN 1 GM in SODIUM CHLORIDE 50 ML IV SCH (09:20)
[2018-01-08] MEDS: TAMBOCOR PO SCH ×2 (09:21→22:07)
[2018-01-08] MEDS: PROTONIX IV IVP SCH ×2 (09:21→22:37)
[2018-01-08] MEDS: ATIVAN PO SCH ×4 (09:21→22:08)
[2018-01-08] MEDS: COZAAR PO SCH (09:21)
[2018-01-08] MEDS: ZOLOFT PO SCH (09:22)
[2018-01-08] MEDS: FERROUS SULFATE PO SCH ×3 (09:23→22:09)
[2018-01-08] MEDS: ZYRTEC PO SCH (09:23)
[2018-01-08] MEDS: K-DUR PO SCH (09:24)
[2018-01-08] MEDS: LOPRESSOR PO SCH ×2 (09:24→22:08)
[2018-01-08] MEDS: ELIQUIS PO SCH ×2 (09:24→22:08)
[2018-01-08] MEDS: SYMBICORT 160-4.5 MCG INHALER IH SCH ×2 (09:36→22:04)
[2018-01-08] MEDS: MIRALAX PO SCH (09:37)
[2018-01-08] MEDS: COLACE PO SCH (09:37)
[2018-01-08] MEDS: VITAMIN C PO SCH (10:30)
[2018-01-08] MEDS: VANCOMYCIN 1 GM in SODIUM CHLORIDE 250 ML IV SCH (10:30)
[2018-01-08] MEDS: VITAMIN D PO SCH (10:30)
--- NOTE | 2018-01-08 15:21 | PN ---
DATE OF SERVICE: 01/07/18 SUBJECTIVE: The patient was admitted with lower GI bleed and upper respiratory infection. Her blood cultures did come positive for the gram positive cocci. She is not on the Vancomycin. She is getting the Rocephin. REVIEW OF SYSTEMS: CONSTITUTIONAL: No fever, no chills. Very hard of hearing. HEENT: Normal. ENDOCRINE: No weight gain, no weight loss. CVS: No angina symptoms. No CHF symptoms. No palpitations. No atypical chest pain for CAD. No shortness of breath. No PND, no orthopnea. RESPIRATORY: Cough, no hemoptysis. GI: No nausea, no vomiting. No abdominal pain. : No hematuria. No polyuria. MUSCULOSKELETAL: No joint swelling. PSYCHIATRIC: Not anxious. No depression. No suicidal thoughts. No homicidal thoughts. SKIN: Intact. No rash. PHYSICAL EXAMINATION: V/S: Blood pressure 134/69, respiratory rate 20, heart rate 71, temperature 97.3 and saturation is 100% on 2 liters. HEENT: Normocephalic, atraumatic. Mucosa dry. Pallor positive. No icterus. NECK: Supple. No JVD, no carotid bruit. No lymphadenopathy. LUNGS: Decreased and basilar crackles. No rales or rhonchi. HEART: S1, S2 normal. No S3. No murmur, gallop or regurgitation. ABDOMEN: Soft, nontender. Bowel sounds active. No rigidity. No rebound or guarding. No CVA tenderness. EXTREMITIES: 1+ edema. No clubbing or cyanosis MUSCULOSKELETAL: No joint swelling. NEUROLOGIC: Awake, alert, oriented times three. No focal deficit. LYMPHATIC: No lymph nodes palpable. SKIN: Intact. LABS: WBC 3.64, hgb 8.5, hct 27.0, plt count 216, sodium 135, potassium 4.8, chloride 103, bicarb 24, BUN 31, creatinine 1.07, glucose 171. ASSESSMENT: 1. Positive blood culture, Gram positive cocci, maybe contaminated. Will be the recheck of the blood culture. 2. COPD exacerbation secondary to the bronchitis 3. Acute on chronic heart failure 4. Anemia with positive occult blood test. Dropped hgb from 9 to 8.5. The patient is on the Eliquis for the atrial fibrillation 5. Atrial fibrillation, rate controlled 6. GERD 7. Osteoarthritis 8. DJD spine 9. Hypothyroidism 10.Depression PLAN: 1. Vancomycin 1 gram daily 2. Rocephin 1 gram daily 3. DUO NEBS 4. Continue the Eliquis 5. Continue to monitor the CBC and CMP TIME SPENT: More than 35 minutes MTDD
--- NOTE | 2018-01-08 15:27 | PN ---
DATE OF SERVICE: 01/06/18 SUBJECTIVE: The patient is still coughing and congested. Hgb is gradually dropping. It dropped from the 9.0 to the 8.5. No bloody bowel movements. REVIEW OF SYSTEMS: CONSTITUTIONAL: No fever, no chills. HEENT: Normal. ENDOCRINE: No weight gain, no weight loss. CVS: No angina symptoms. No CHF symptoms. No palpitations. No atypical chest pain for CAD. No shortness of breath. No PND, no orthopnea. RESPIRATORY: No cough, no hemoptysis. GI: No nausea, no vomiting. No abdominal pain. : No hematuria. No polyuria. MUSCULOSKELETAL: No joint swelling. PSYCHIATRIC: Not anxious. No depression. No suicidal thoughts. No homicidal thoughts. SKIN: Intact. No rash. PHYSICAL EXAMINATION: V/S: blood pressure 111/59, respiratory rate 16, heart rate 73, temperature 97.6 with saturation 100%. HEENT: Normocephalic, atraumatic. Mucosa dry. NECK: Supple. No JVD, no carotid bruit. No lymphadenopathy. LUNGS: Decreased and basilar crackles. Clear to auscultation. No rales or rhonchi. HEART: S1, S2 normal. No S3. No murmur, gallop or regurgitation. ABDOMEN: Soft, nontender. Bowel sounds active. No rigidity. No rebound or guarding. No CVA tenderness. EXTREMITIES: 1+ edema. No clubbing or cyanosis MUSCULOSKELETAL: No joint swelling. NEUROLOGIC: Awake, alert, oriented times three. No focal deficit. Very hard of hearing. LYMPHATIC: No lymph nodes palpable. SKIN: Intact. Dry. LABS: Sodium 135, potassium 4.8, chloride 103, bicarb 24, BUN 31, creatinine 1.07, WBC 3.74, hgb 8.5, hct 27.0 and plt count 216 ASSESSMENT: 1. Lower GI bleed with positive occult blood test 2. Stable hgb 3. COPD exacerbation and bronchitis 4. Acute on chronic heart failure 5. Anemia, stable 6. Atrial fibrillation 7. Alzheimer's Dementia 8. Polymyalgia Rheumatica PLAN: 1. Continue the Eliquis 2. Continue Azithromycin, Rocephin, DUO NEBS 3. Daily I&O's TIME SPENT: More than 35 minutes MTDD
[2018-01-08] MEDS: NORVASC PO SCH (22:07)
[2018-01-08] MEDS: COGENTIN PO SCH (22:09)
[2018-01-08] MEDS: ROBITUSSIN SUGAR-FREE PO PRN (22:47)
[2018-01-09] MEDS: SOLU-MEDROL 125 MG IVP SCH ×3 (05:27→22:27)
[2018-01-09] MEDS: SYNTHROID PO SCH (05:38)
[2018-01-09] MEDS: BUMEX PO SCH (05:38)
[2018-01-09] MEDS: LIBRAX 5/2.5 MG PO SCH ×4 (05:38→22:36)
[2018-01-09] MEDS: CARAFATE PO SCH ×4 (05:38→22:38)
[2018-01-09] MEDS: DUONEB NEB SCH ×4 (06:17→20:41)
[2018-01-09] MEDS: PROTONIX IV IVP SCH ×2 (08:34→22:28)
[2018-01-09] MEDS: ROCEPHIN 1 GM in SODIUM CHLORIDE 50 ML IV SCH (08:34)
[2018-01-09] MEDS: ATIVAN PO SCH ×4 (08:39→22:33)
[2018-01-09] MEDS: ZOLOFT PO SCH (08:39)
[2018-01-09] MEDS: VITAMIN C PO SCH (08:40)
[2018-01-09] MEDS: TAMBOCOR PO SCH ×2 (08:40→22:36)
[2018-01-09] MEDS: COLACE PO SCH (08:40)
[2018-01-09] MEDS: FERROUS SULFATE PO SCH ×3 (08:41→22:37)
[2018-01-09] MEDS: MIRALAX PO SCH (08:41)
[2018-01-09] MEDS: VITAMIN D PO SCH (08:41)
[2018-01-09] MEDS: LOPRESSOR PO SCH ×2 (08:41→22:37)
[2018-01-09] MEDS: COZAAR PO SCH (08:43)
[2018-01-09] MEDS: K-DUR PO SCH (08:47)
[2018-01-09] MEDS: ZYRTEC PO SCH (08:47)
[2018-01-09] MEDS: SYMBICORT 160-4.5 MCG INHALER IH SCH ×2 (08:47→22:28)
[2018-01-09] MEDS: ELIQUIS PO SCH ×2 (08:49→22:38)
[2018-01-09] MEDS ORDERED: VANCOMYCIN 1,000 MG in SODIUM CHLORIDE 200 ML IV SCH (09:00)
--- NOTE | 2018-01-09 09:27 | HP ---
DATE OF SERVICE: 01/05/18 CHIEF COMPLAINT: Shortness of breath, cough and congestion. HISTORY OF PRESENT ILLNESS: This an 87 year old female who is a [facility] resident been coughing and congestion and not able to get the phlegm, gradually getting worse as saturations were dropping to the 80's. At that time the patient was sent to the emergency room for the evaluation. Temperature was 98.2, Saturation was 98 on 2 liters. Evaluation showed hgb was 9.1 and also patient was noted to have been having black tarry stools and BNP was 441. Lactic acid negative. ABG showed the pH 7.412, pCO2 39.9, pO2 76. Chest x-ray negative. Stool for occult blood test is positive. At that time she was admitted to the hospital for positive occult blood test, anemia and lower GI bleed and she is on the Eliquis for the atrial fibrillation, COPD exacerbation, bronchitis and acute on chronic heart failure. REVIEW OF SYSTEMS: CONSTITUTIONAL: No fever, no chills. Weakness and tiredness. HEENT: Very hard of hearing. ENDOCRINE: No weight gain; no weight loss. CVS: No chest pain. No PND, no orthopnea. Shortness of breath. No PND, no orthopnea. RESPIRATORY: Cough, Congestion. No hemoptysis. GI: No nausea, no vomiting. No abdominal pain. No melena. : No hematuria. No polyuria. Black colored stools. MUSCULOSKELETAL: No joint swelling. PSYCHIATRIC: Not anxious. No depression. No suicidal thoughts. No homicidal thoughts. SKIN: Intact, no open lesions. PAST MEDICAL HISTORY: Atrial fibrillation Hypertension Dependant leg edema Asthmatic bronchitis GERD Osteoarthritis Osteoporosis Hypothyroidism Depression Anxiety PAST SURGICAL HISTORY: Tonsillectomy Parathyroidectomy Cholecystectomy Appendectomy Cholecystectomy Ear surgery PERSONAL HISTORY: The patient lives at the residential. Used to smoke. Partially dependant upon the ADL's. Family History is significant for thyroid disease. MEDICATIONS: Tironsint Bumex Ativan Dulera Metoprolol Losartan Flonase Flecainide Eliquis Docusate Chlordiazepoxide-Clindinium Benztropine Ultram Ascorbic acid Chloraseptic spray Sertraline Miralax Zyrtec Ferrous Sulfate Vitamin D3 Tylenol Amlodipine DUO NEBS K-Dur Prednisone Omeprazole Carafate Guaifenesin ALLERGIES: Meloxicam Morphine Tramadol PHYSICAL EXAMINATION: V/S: Blood pressure 150/88, respiratory rate 24, heart rate 72 and temperature 98.2 with saturation is 98% 2 liters. GENERAL: Sick looking lady, laying in bed and not in any distress. HEENT: Atraumatic, normocephalic. No scleral icterus. Mucosa dry. Pallor positive. NECK: Supple. No JVD, no bruit. No lymphadenopathy. No thyromegaly. HEART: S1, S2 normal. No murmur. No cyanosis or clubbing. No ascites. LUNGS: Decreased and basilar crackles. Clear to auscultation. No rales or rhonchi. ABDOMEN: Soft, nontender. Bowel sounds are active. No CVA tenderness. No rigidity or guarding. EXTREMITIES: 1+ edema. No cyanosis or clubbing MUSCULOSKELETAL: Normal joints, no swelling. NEUROLOGIC: The patient is awake and alert and very hard of hearing. SKIN: Intact; no open lesions. LYMPHATIC: No lymph nodes palpable. LABS: WBC 6.71, hgb 9.0, hct 28.7, plt count 222, sodium 139, potassium 4.9, chloride 105, bicarb 23, BUN 30, creatinine 1.15, BNP 441. Stool for occult blood test is negative. Serology negative. Chest x-ray shows pulmonary congestion ASSESSMENT: 1. Acute on chronic heart failure 2. COPD exacerbation secondary to the bronchitis 3. Anemia with positive occult blood test 4. Atrial fibrillation on Eliquis 5. Coronary artery disease 6. Hypertension 7. Congestive heart failure 8. Dyslipidemia 9. Depression 10.Alzheimer's Dementia 11.Very hard of hearing PLAN: 1. Admit patient to the regular floor 2. CBC and CMP today and daily 3. Cardiac enzymes and Troponin 4. As of now we are continuing the Eliquis as stopping Eliquis can cause more stroke risk 5. Monitor H&H 6. Continue the Azithromycin and Rocephin 7. DUO NEBS 8. Daily I&O's 9. Solu-Medrol TIME SPENT: MORE THAN 75 minutes MTDD
--- NOTE | 2018-01-09 11:00 | DI ---
Exam: Chest one-view History: Wheezing and cough and shortness of breath FINDINGS: Normal cardiomediastinal contours. Normal pulmonary vasculature. No infiltrative opaciti es. Atherosclerotic calcification of the aorta. No acute chest wall abnormality. Degenerative de la fuente ge of the shoulders. Impression: No acute cardiopulmonary disease.
[2018-01-09] MEDS: COGENTIN PO SCH (22:34)
[2018-01-09] MEDS: NORVASC PO SCH (22:37)
[2018-01-09] MEDS: ROBITUSSIN SUGAR-FREE PO PRN (22:38)
[2018-01-10] MEDS: DUONEB NEB SCH ×4 (04:48→20:47)
[2018-01-10] MEDS: LIBRAX 5/2.5 MG PO SCH ×4 (06:18→21:53)
[2018-01-10] MEDS: BUMEX PO SCH (06:18)
[2018-01-10] MEDS: CARAFATE PO SCH ×4 (06:18→21:52)
[2018-01-10] MEDS: SOLU-MEDROL 125 MG IVP SCH ×3 (06:18→22:51)
[2018-01-10] MEDS: SYNTHROID PO SCH (06:18)
[2018-01-10] MEDS: ROCEPHIN 1 GM in SODIUM CHLORIDE 50 ML IV SCH (08:10)
[2018-01-10] MEDS: ZOLOFT PO SCH (08:13)
[2018-01-10] MEDS: SYMBICORT 160-4.5 MCG INHALER IH SCH ×2 (08:13→21:51)
[2018-01-10] MEDS: ATIVAN PO SCH ×4 (08:14→21:55)
[2018-01-10] MEDS: TAMBOCOR PO SCH ×2 (08:14→21:53)
[2018-01-10] MEDS: VITAMIN C PO SCH (08:14)
[2018-01-10] MEDS: MIRALAX PO SCH (08:15)
[2018-01-10] MEDS: K-DUR PO SCH (08:15)
[2018-01-10] MEDS: VITAMIN D PO SCH (08:16)
[2018-01-10] MEDS: COLACE PO SCH (08:16)
[2018-01-10] MEDS: ZYRTEC PO SCH (08:16)
[2018-01-10] MEDS: COZAAR PO SCH (08:16)
[2018-01-10] MEDS: ELIQUIS PO SCH ×2 (08:17→21:53)
[2018-01-10] MEDS: LOPRESSOR PO SCH ×2 (08:17→21:56)
[2018-01-10] MEDS: FERROUS SULFATE PO SCH ×3 (08:17→21:52)
[2018-01-10] MEDS: PROTONIX IV IVP SCH ×2 (10:34→22:51)
[2018-01-10] MEDS: VANCOMYCIN 1 GM in SODIUM CHLORIDE 250 ML IV SCH (10:34)
[2018-01-10] MEDS: ROBITUSSIN SUGAR-FREE PO PRN (12:34)
[2018-01-10] MEDS: COGENTIN PO SCH (21:52)
[2018-01-10] MEDS: NORVASC PO SCH (21:56)
[2018-01-11] MEDS: DUONEB NEB SCH ×3 (04:55→14:55)
[2018-01-11] MEDS: SOLU-MEDROL 125 MG IVP SCH ×2 (05:25→14:00)
[2018-01-11 05:32] VITALS: BP 127/85; TEMP 98.7
[2018-01-11] MEDS: BUMEX PO SCH (05:44)
[2018-01-11] MEDS: LIBRAX 5/2.5 MG PO SCH ×2 (05:44→11:40)
[2018-01-11] MEDS: SYNTHROID PO SCH (05:44)
[2018-01-11] MEDS: CARAFATE PO SCH ×2 (05:44→10:46)
[2018-01-11] MEDS: ROCEPHIN 1 GM in SODIUM CHLORIDE 50 ML IV SCH (08:42)
[2018-01-11] MEDS: SYMBICORT 160-4.5 MCG INHALER IH SCH (08:43)
[2018-01-11] MEDS: FERROUS SULFATE PO SCH (08:45)
[2018-01-11] MEDS: VITAMIN C PO SCH (08:46)
[2018-01-11] MEDS: COZAAR PO SCH (08:46)
[2018-01-11] MEDS: COLACE PO SCH (08:46)
[2018-01-11] MEDS: VITAMIN D PO SCH (08:46)
[2018-01-11] MEDS: ZOLOFT PO SCH (08:47)
[2018-01-11] MEDS: ZYRTEC PO SCH (08:47)
[2018-01-11] MEDS: TAMBOCOR PO SCH (08:48)
[2018-01-11] MEDS: ATIVAN PO SCH ×2 (08:48→14:00)
[2018-01-11] MEDS: LOPRESSOR PO SCH (08:48)
[2018-01-11] MEDS: K-DUR PO SCH (08:48)
[2018-01-11] MEDS: MIRALAX PO SCH (08:48)
[2018-01-11] MEDS: ELIQUIS PO SCH (08:50)
[2018-01-11] MEDS: PROTONIX IV IVP SCH (09:40)
[2018-01-11] MEDS ORDERED: K-DUR PO STA (10:30)
[2018-01-11] MEDS: VANCOMYCIN 1 GM in SODIUM CHLORIDE 250 ML IV SCH (10:41)
--- NOTE | 2018-01-11 11:10 | CM.DICTOOL ---
ADMISSION: 01/05/18 05:14 DISCHARGE: 01/11/18 DATE OF SERVICE: 01/11/18 FINAL DIAGNOSIS COPD EXACERBATION GI BLEED (OCCULT STOOL POSITIVE) CAD AND HISTORY OF [place] DYSLIPIDEMIA CHF, DIASTOLIC ATRIAL FIBRILLATION, PAROXYSMAL HYPERTENSION HYPOTHYROIDISM COPD KIDNEY DISEASE ANEMIA GERD CONSTIPATION DIVERTICULITIS BY HISTORY IRRITABLE BOWEL SYNDROME ANXIETY/DEPRESSION POLYMYALGIA RHEUMATICA OSTEOARTHRITIS, BOTH HIPS, SPINE HEARING IMPAIRED APPENDECTOMY CHOLECYSTECTOMY TONSILLECTOMY RIGHT WRIST FRACTURE FORMER SMOKER LAST ENDOSCOPY AT [facility] BY DR. AGUILAR, 12/29/14 MILD ATROPHIC GASTRITIS WHITE COATING OF THE UPPER ESOPHAGUS, QUESTION ALEXANDER OR JUST MUCOSAL COATING FROM MEDS LAST VITALS Temp Pulse Resp BP Pulse Ox 98.7 F 84 14 127/85 97 01/11/18 05:31 01/11/18 05:31 01/11/18 05:31 01/11/18 05:31 01/11/18 05:31 ACTIVE [facility] MEDICATIONS Acetaminophen (Tylenol) 650 mg PO Q4H PRN PRN Reason: Fever Albuterol/Ipratropium (Duoneb) 1 vial NEB RTQ2H PRN PRN Reason: Wheezing Albuterol/Ipratropium (Duoneb) 1 vial NEB RTQID [facility] Last Admin: 01/11/18 04:55 Dose: 1 vial Amlodipine Besylate (Norvasc) 5 mg PO BEDTIME [facility] Last Admin: 01/10/18 21:56 Dose: 5 mg Apixaban (Eliquis) 2.5 mg PO BID [facility] Last Admin: 01/11/18 08:50 Dose: 2.5 mg Ascorbic Acid (Vitamin C) 1,000 mg PO DAILY [facility] Last Admin: 01/11/18 08:46 Dose: 1,000 mg Benztropine Mesylate (Cogentin) 0.5 mg PO BEDTIME [facility] Last Admin: 01/10/18 21:52 Dose: 0.5 mg Bumetanide (Bumex) 1 mg PO QDAC [facility] Last Admin: 01/11/18 05:44 Dose: 1 mg Cetirizine HCl (Zyrtec) 10 mg PO DAILY [facility] Last Admin: 01/11/18 08:47 Dose: 10 mg Chlordiazepoxide/Clidinium (Librax 5/2.5 Mg) 1 cap PO ACHS [facility] Last Admin: 01/11/18 05:44 Dose: 1 cap Cholecalciferol (Vitamin D) 2,000 unit PO DAILY [facility] Last Admin: 01/11/18 08:46 Dose: 2,000 unit Docusate Sodium (Colace) 100 mg PO DAILY [facility] Last Admin: 01/11/18 08:46 Dose: 100 mg Ferrous Sulfate (Ferrous Sulfate) 324 mg PO TID [facility] Last Admin: 01/11/18 08:45 Dose: 324 mg Flecainide Acetate (Tambocor) 100 mg PO Q12HR [facility] Last Admin: 01/11/18 08:48 Dose: 100 mg Fluticasone Propionate (Flonase) 1 spray NS DAILY PRN) Guaifenesin (Robitussin Sugar-Free) 20 ml PO BID PRN PRN Reason: Cough Last Admin: 01/10/18 12:34 Dose: 20 ml Ceftriaxone Sodium 1 gm/ (Sodium Chloride) 50 mls @ 75 mls/hr IV DAILY [facility] Last Admin: 01/11/18 08:42 Dose: 75 mls/hr Vancomycin HCl 1 gm/ Sodium (Chloride) 250 mls @ 125 mls/hr IV DAILY [facility] Last Admin: 01/10/18 10:34 Dose: 125 mls/hr Levothyroxine Sodium (Synthroid) 75 mcg PO QDAC [facility] Last Admin: 01/11/18 05:44 Dose: 75 mcg Lorazepam (Ativan) 0.5 mg PO QID [facility] Last Admin: 01/11/18 08:48 Dose: 0.5 mg Losartan Potassium (Cozaar) 100 mg PO DAILY [facility] Last Admin: 01/11/18 08:46 Dose: 100 mg Methylprednisolone Sodium Succinate (Solu-Medrol 125 Mg) 125 mg IVP Q8H [facility] Last Admin: 01/11/18 05:25 Dose: 125 mg Metoprolol Tartrate (Lopressor) 50 mg PO Q12HR [facility] Last Admin: 01/11/18 08:48 Dose: 50 mg Mometasone/Formoterol (Dulera 100 mcg/5mcg Inhaler 1 spray INH BID Pantoprazole Sodium (Protonix Iv) 40 mg IVP Q12HR [facility] Last Admin: 01/10/18 22:51 Dose: 40 mg Polyethylene Glycol (Miralax) 17 gm PO DAILY [facility] Last Admin: 01/11/18 08:48 Dose: 17 gm Potassium Chloride (K-Dur) 40 meq PO DAILY [facility] Last Admin: 01/11/18 08:48 Dose: 40 meq Sertraline HCl (Zoloft) 200 mg PO DAILY [facility] Last Admin: 01/11/18 08:47 Dose: 200 mg Sucralfate (Carafate) 1 gm PO ACHS [facility] Last Admin: 01/11/18 05:44 Dose: 1 gm Tramadol HCl (Ultram) 50 mg PO Q6HR PRN PRN Reason: severe pain ALLERGIES meloxicam [From Mobic] Adverse Reaction (Verified 01/05/18 03:49) morphine Adverse Reaction (Verified 01/05/18 03:49) tramadol Adverse Reaction (Verified 01/05/18 03:49) NEW PRESCRIPTIONS: KEFLEX 500 MG PO BID X 5 DAYS PREDNISONE 20 MG PO DAILY X 5 DAYS. GIVE WITH FOOD SMOKING: FORMER SMOKER DISEASE SPECIFIC EDUCATION: COPD ANEMIA [facility] STAY [facility] MEDICATIONS NEW PRESCRIPTIONS FOLLOW UP [facility] ACTIVITY LAB REVIEW: 01/11/18 08:20 01/11/18 08:20 01/11/18 08:20: Sodium 135 L, Potassium 3.3 L, Chloride 96 L, Carbon Dioxide 28 , Anion Gap 14.3, BUN 34 H, Creatinine 1.11, Estimated GFR (MDRD) 46.00, BUN/ Creatinine Ratio 30.63, Glucose 250 H, Calcium 8.6, Total Bilirubin 0.3, AST 14 L, ALT 41, Alkaline Phosphatase 49 L, Total Protein 6.0, Albumin 2.9 L, Globulin 3.1, Albumin/Globulin Ratio 0.94 01/11/18 08:20: WBC 6.15, RBC 4.20, Hgb 11.1 L, Hct 33.7 L, MCV 80.2 L, MCH 26.4 L, MCHC 32.9, RDW Coeff of Jamal 17.3 H, Plt Count 264, Immature Gran % (Auto ) 2.8, Neut % (Auto) 85.8, Lymph % (Auto) 9.1 L, [place] % (Auto) 2.1, Eos % (Auto ) 0.2, Baso % (Auto) 0.0, Immature Gran # (Auto) 0.2, Neut # (Auto) 5.3, Lymph # (Auto) 0.6, [place] # (Auto) 0.1 L, Eos # (Auto) 0.0, Baso # (Auto) 0.0 01/11/18 08:20: Vancomycin Trough 10.22 PLAN: DISCHARGE BACK TO [facility] DR. CHAKRABORTY WILL FOLLOW THE PATIENT AT THE [facility] DURING USUAL [facility] ROUNDS IN ONE WEEK RESUME [facility] MEDICATIONS PER LIST PROVIDED BY THE NURSING STAFF NEW MEDICATIONS KEFLEX 500 MG PO BID X 5 DAYS PREDNISONE 20 MG PO DAILY X 5 DAYS. GIVE WITH FOOD ACTIVITY MAY PARTICIPATE IN [facility] ACTIVITY PROGRAM TOLERATION UP TO DINING ROOM FOR MEALS RESTORATIVE CARE LABS CBC WITH DIFF AND CMP IN ONE WEEK DIET REGULAR RODDING MACHINE TENDER PLEASE CONSULT TO PROVIDE FOR OPTIMAL NUTRITIONAL NEEDS FOR THIS PATIENT OTHER V/S DAILY FOR ONE WEEK SUMMARY THE PATIENT IS ALERT AND ORIENTED TO PERSON AND PLACE. SHE BECOMES CONFUSED OFTEN BUT REMAINS COOPERATIVE FOR CARE. SHE REQUIRES COMPLETE ASSISTANCE FOR ADL'S BUT IS ABLE TO FEED HERSELF WITH MINIMAL ASSISTANCE. SHE CURRENTLY IS A RESIDENT AT [facility] AND DESIRES TO RETURN THERE AT DISCHARGE. THE SKIN TURGOR IS FRAGILE. MS. JIMENEZ HAS MULTIPLE SKIN TEARS PRESENT ON ADMISSION TO HER RIGHT AND LEFT ELBOWS AND HER RIGHT FOREARM. TEGADERM COVERS THE TEARS. HER COCCYX HAS MILD REDNESS ALSO PRESENT ON ADMISSION. PRESSURE RELIEVING MEASURES HAVE BEEN TAKEN DURING THE HOSPITALIZATION AND WILL BE IN PLACE AT THE [facility]. THE PATIENT AND HER DAUGHTER, ALLEN, ARE AWARE AND AGREEABLE FOR TODAY'S DISCHARGE PLANS. I WILL FOLLOW THIS PATIENT AT THE [facility] DURING [facility]UAL [facility] ROUNDS IN APPROXIMATELY ONE WEEK. CURRENT CODE STATUS: DO NOT RESUSCITATE BRENDA CHAKRABORTY M.D.
--- NOTE | 2018-01-11 13:29 | PN ---
DATE OF SERVICE: 01/08/18 SUBJECTIVE: The patient is admitted with GI bleed and acute on chronic heart failure and upper respiratory infection. She is still coughing some. Hemoglobin has been steady. Black tarry stools have stopped. REVIEW OF SYSTEMS: CONSTITUTIONAL: No fever, no chills. HEENT: Normal. ENDOCRINE: No weight gain, no weight loss. CVS: No angina symptoms. No CHF symptoms. No palpitations. No atypical chest pain for CAD. No shortness of breath. No PND, no orthopnea. RESPIRATORY: Cough. No hemoptysis. GI: No nausea, no vomiting. No abdominal pain. : No hematuria. No polyuria. MUSCULOSKELETAL: No joint swelling. PSYCHIATRIC: Not anxious. No depression. No suicidal thoughts. No homicidal thoughts. SKIN: Intact. No rash. PHYSICAL EXAMINATION: V/S: BP 136/70, respiratory rate 20, heart rate 70, temperature 97.6, saturation 96 on 2L. GENERAL: The patient is very hard of hearing. HEENT: Normocephalic, atraumatic. Mucosa dry. Pallor positive. No icterus. NECK: Supple. No JVD, no carotid bruit. No lymphadenopathy. LUNGS: Bilateral entry with decreased basilar crackles. HEART: S1, S2 normal. No S3. No murmur, gallop or regurgitation. ABDOMEN: Soft, nontender. Bowel sounds active. No rigidity. No rebound or guarding. No CVA tenderness. EXTREMITIES: 1+ edema. No clubbing or cyanosis MUSCULOSKELETAL: No joint swelling. NEUROLOGIC: Awake, alert but not oriented. He has some confusion spells. Very hard of hearing. LYMPHATIC: No lymph nodes palpable. SKIN: Intact. LABS: White count 6.68, hemoglobin 8.8, hematocrit 27.7, platelet count 237. Sodium 134, potassium 4.3, chloride 100, bicarb 24, BUN 42, creatinine 1.21, glucose 201. ASSESSMENT: 1. LOWER GI BLEED, HEMOGLOBIN HAS BEEN STEADY 2. ATRIAL FIBRILLATION ON ELIQUIS. 3. ACUTE ON CHRONIC HEART FAILURE 4. UPPER RESPIRATORY INFECTION 5. BLOOD CULTURES POSITIVE WITH STAPHPHYLOCOCCUS EPIDERMIDIS MOST LIKELY CONTAMINATION, WILL GET ONE MORE CULTURE TODAY 6. HARD OF HEARING 7. OSTEOARTHRITIS/OSTEOPOROSIS 8. HYPOTHYROIDISM 9. DEPRESSION PLAN: 1. Continue Vancomycin, Rocephin and Duonebs 2. Continue Eliquis 3. Continue to monitor 4. CBC, CMP daily TIME SPENT: More than 35 minutes MTDD
--- NOTE | 2018-01-11 13:36 | PN ---
DATE OF SERVICE: 01/09/18 SUBJECTIVE: The patient is up and about having still some coughing and congestion but no fever, no chills, no PND or orthopnea. Despite the positive occult blood test, there is no fever at this time and no elevated white count. REVIEW OF SYSTEMS: CONSTITUTIONAL: No fever, no chills. HEENT: Normal. ENDOCRINE: No weight gain, no weight loss. CVS: No angina symptoms. No CHF symptoms. No palpitations. No atypical chest pain for CAD. No shortness of breath. No PND, no orthopnea. RESPIRATORY: No cough, no hemoptysis. GI: No nausea, no vomiting. No abdominal pain. : No hematuria. No polyuria. MUSCULOSKELETAL: No joint swelling. PSYCHIATRIC: Not anxious. No depression. No suicidal thoughts. No homicidal thoughts. SKIN: Intact. No rash. PHYSICAL EXAMINATION: V/S: BP 140/82, respiratory rate 20, heart rate 97, temperature 97.8, saturation 99 on 2L. HEENT: Normocephalic, atraumatic. Mucosa dry. pallor positive. No icterus. NECK: Supple. No JVD, no carotid bruit. No lymphadenopathy. LUNGS: Decreased entry with basilar crackles. HEART: S1, S2 normal. No S3. No murmur, gallop or regurgitation. ABDOMEN: Soft, nontender. Bowel sounds active. No rigidity. No rebound or guarding. No CVA tenderness. EXTREMITIES: 1+ edema. No clubbing or cyanosis MUSCULOSKELETAL: No joint swelling. NEUROLOGIC: Awake, alert. Very hard of hearing on the right ear. No focal deficit. LYMPHATIC: No lymph nodes palpable. SKIN: Intact. LABS: Sodium 137, potassium 3.9, chloride 99, bicarb 29, BUN 37, creatinine 1.14. White count 5.25, hemoglobin 9.9, hematocrit 31.0, platelet count 232. ASSESSMENT: 1. POSITIVE BLOOD CULTURE WITH STAPH EPIDERMIDIS 2. ACUTE ON CHRONIC HEART FAILURE 3. LOWER GI BLEED, STABLE HEMOGLOBIN (9.9 TODAY) 4. ATRIAL FIBRILLATION ON ELIQUIS 5. DEPRESSION 6. OSTEOARTHRITIS/OSTEOPOROSIS 7. HYPOTHYROIDISM PLAN: 1. Will do blood cultures today 2. Continue Rocephin and Vancomycin 3. Duonebs TIME SPENT: More than 35 minutes MTDD
--- NOTE | 2018-02-06 14:18 | PN ---
DATE OF SERVICE: 01/10/18 SUBJECTIVE: The patient was admitted with lower GI bleed. Her blood cultures came positive for the staphylococcus Epidermidis. Repeat blood cultures were done, which are pending. She had a GI bleed, but hemoglobin is stable. The patient is on the Eliquis. Upper respiratory infection and coughing. The patient is complaining about some cough and congestion. Otherwise, no new problems today. REVIEW OF SYSTEMS: CONSTITUTIONAL: No fever, no chills. Weakness and tiredness. HEENT: Very hard of hearing in the right ear. ENDOCRINE: No weight gain, no weight loss. CVS: No angina symptoms. No CHF symptoms. No palpitations. No atypical chest pain for CAD. No shortness of breath. No PND, no orthopnea. RESPIRATORY: Cough and congestion is present, no hemoptysis. GI: No nausea, no vomiting. No abdominal pain. : No hematuria. No polyuria. MUSCULOSKELETAL: No joint swelling. PSYCHIATRIC: Not anxious. No depression. No suicidal thoughts. No homicidal thoughts. SKIN: Intact. No rash. PHYSICAL EXAMINATION: V/S: Blood pressure is 122/68, respiratory rate 20, heart rate 76, temperature 98.4, saturation 100%. HEENT: Normocephalic, atraumatic. Mucosa dry. Pallor positive. No icterus. NECK: Supple. No JVD, no carotid bruit. No lymphadenopathy. LUNGS: Decreased and some crackles on the bases. No rales or rhonchi. HEART: S1, S2 normal. No S3. No murmur, gallop or regurgitation. ABDOMEN: Soft, nontender. Bowel sounds active. No rigidity. No rebound or guarding. No CVA tenderness. EXTREMITIES: 1+ edema. No clubbing or cyanosis MUSCULOSKELETAL: No joint swelling. NEUROLOGIC: Awake, alert, oriented times three. No focal deficit. LYMPHATIC: No lymph nodes palpable. SKIN: Intact. LABS: White count 5.25, hemoglobin 9.9, hematocrit 31.0, platelet count 232, sodium 137, potassium 3.9, chloride 99, bicarb 29, BUN 37, creatinine 1.14, glucose 220. ASSESSMENT: 1. LOWER GI BLEED WITH POSITIVE OCCULT BLOOD TEST ON ELIQUIS HEMOGLOBIN IS STABLE 2. UPPER RESPIRATORY INFECTION, WHICH IS BETTER 3. ACUTE ON CHRONIC HEART FAILURE 4. HYPERTENSION 5. ATRIAL FIBRILLATION 6. ASTHMATIC BRONCHITIS 7. POLYMYALGIA RHEUMATICA PLAN: 1. Follow up on the blood cultures. 2. Continue the Eliquis 2.5 mg twice daily. 3. Rocephin 1 gram daily. 4. Zyrtec. 5. Robitussin prn. 6. DuoNebs. 7. Daily I & O's. 8. Will follow up on the patient's blood cultures before the discharge plan. 9. The patient will be discharged back to the detention. TIME SPENT: More than 35 minutes MTDD
--- NOTE | 2018-02-06 14:51 | DS ---
DATE OF SERVICE: 01/11/18 FINAL DIAGNOSIS: 1. CHRONIC OBSTRUCTIVE PULMONARY DISEASE EXACERBATION 2. GI BLEED, OCCULT STOOL POSITIVE 3. CORONARY ARTERY DISEASE WITH HISTORY OF MYOCARDIAL INFARCTION 4. DYSLIPIDEMIA 5. CONGESTIVE HEART FAILURE, DIASTOLIC 6. ATRIAL FIBRILLATION, PAROXYSMAL 7. HYPERTENSION 8. HYPOTHYROIDISM 9. CHRONIC OBSTRUCTIVE PULMONARY DISEASE 10. KIDNEY DISEASE 11. ANEMIA 12. GERD 13. CONSTIPATION 14. DIVERTICULITIS BY HISTORY 15. IRRITABLE BOWEL SYNDROME 16. 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 OSTEOARTHRITIS, BOTH HIPS AND SPINE 19. HEARING IMPAIRED 20. FORMER SMOKER PLAN: 1. Discharge back to [facility]. 2. Dr. Crespo will follow the patient at the snf during usual snf rounds in one week. 3. Resume snf medications as per list provided by the nursing staff. 4. New medications: Keflex 500 mg p.o. twice daily for 5 days. Prednisone 20 mg p.o. daily for 5 days. Give with food. 5. Activity: May participate in snf activity program as tolerated. 6. Up to dining room for meals. 7. Restorative care. 8. Labs: CBC with diff and CMP in one week. 9. Diet: Regular. Helpdesk Administrator please consult to provide for optimal nutritional needs for this patient. 10. Vital signs daily for one week. HOSPITAL COURSE: Desi Trejo was admitted with black tarry stool. The patient was on Eliquis. Shortness of breath, cough and congestion. The patient was recently in the hospital for pneumonia and heart failure. Her BNP was elevated at 441. Because of the upper respiratory infection, the patient was started on the IV antibiotics, breathing treatments and steroids. Eliquis was continued at 2.5 mg twice daily. As hemoglobin drop was minimal stopping the Eliquis can cause more of rebound phenomenon with stroke. I don't want to discontinue the Eliquis. We continued to monitor the H & H which was 39.0, 8.8 and 8.5 and occult blood test was positive. Second one was negative. Vancomycin trough level was 10.22. ABG initially showed the pH 7.412, PCO2 39.9 , PO2 25.4, serology was negative. The patient is very hard of hearing. Hospital course was uneventful. Hemoglobin and hematocrit were steady and did not drop. Potassium was low, which was replaced. Meanwhile, the blood cultures came positive of the staphylococcus epidermidis it is presumed to be contamination. As it was positive, Vancomycin was added at that time. Started with the Vancomycin covering for empirically and repeat blood cultures were done , which were negative. As the patient was more perky and less lethargic and less coughing, hemoglobin had been steady and did not have any more black tarry stools, at that time the patient was discharged back to the snf. TIME SPENT: MORE THAN 65 MINUTES MTDD
== END 2018-01-11 14:15 | DRG 190 ==
LOC: ED 03:47 → MEDSURG B 05:14
PROVIDERS: ADMIT Emergency Medicine; ATTEND Emergency Medicine
DX: J44.1 Chronic obstructive pulmonary disease with (acute) exacerbation (principal); I50.33 Acute on chronic diastolic (congestive) heart failure; K92.1 Melena; J44.0 Chronic obstructive pulmonary disease with (acute) lower respiratory infection; J20.9 Acute bronchitis, unspecified; R06.02 Shortness of breath; I48.0 Paroxysmal atrial fibrillation; I10 Essential (primary) hypertension; N18.9 Chronic kidney disease, unspecified; D64.9 Anemia, unspecified; I25.10 Atherosclerotic heart disease of native coronary artery without angina pectoris; E78.5 Hyperlipidemia, unspecified; I25.2 Old myocardial infarction; E03.9 Hypothyroidism, unspecified; I49.9 Cardiac arrhythmia, unspecified; K59.00 Constipation, unspecified; F41.8 Other specified anxiety disorders; K21.9 Gastro-esophageal reflux disease without esophagitis; K58.9 Irritable bowel syndrome, unspecified; M35.3 Polymyalgia rheumatica; M16.10 Unilateral primary osteoarthritis, unspecified hip; M47.9 Spondylosis, unspecified; H91.91 Unspecified hearing loss, right ear; Z79.01 Long term (current) use of anticoagulants; Z79.899 Other long term (current) drug therapy; Z87.19 Personal history of other diseases of the digestive system; Z87.891 Personal history of nicotine dependence
CPT/HCPCS: 36415; 80048; 80053; 80202; 82272; 82550; 82803; 83605; 83880; 84145; 84484; 85025; 87040; 87070; 87081; 87186; 87502; 93005; 93010; 94640; 96365; 96375; 99284; 99285

== ENCOUNTER 2018-02-06 13:39 | Outpatient (CLI) | END 2018-02-06 13:40 | disposition short-term general hospital (02) | LOC: AMBL 13:39 | PROVIDERS: ATTEND Internal Medicine | DX: R41.82 Altered mental status, unspecified (principal); R00.1 Bradycardia, unspecified; R40.2421 Glasgow coma scale score 9-12, in the field [EMT or ambulance]; F03.90 Unspecified dementia, unspecified severity, without behavioral disturbance, psychotic disturbance, mood disturbance, and anxiety; R53.83 Other fatigue ==